=== PATIENT | female | born 1960 | race Caucasian/White ===

== ENCOUNTER 2017-07-12 13:51 | Inpatient (IN) | payer MEDICARE, OTHER ==
--- NOTE | 2017-07-12 14:24 | ED Physician Chart ---
ED Chief Complaint/HPI - Patient Information Date Seen:: 07/12/17 Time Seen:: 14:10 Chief Complaint:: Agitation History of Present Illness:: onset x 3 days of agitation and aggressive behavior; no report of trauma, SIs, AMS, H/As, S/T, neck pain, C/P, SOB, Abd. Pain, A/N/V/D/C, fever, chills, or urinary s/s Allergies:: Allergies Allergy/AdvReac Type Severity Reaction Status Date / Time lorazepam Allergy Verified 07/12/17 14:09 Historian:: Patient, EMS Review:: Nurse's Note Reviewed, Old Chart Reviewed, EMS run form Reviewed ED Review of Systems - Review of Systems General/Constitutional: No fever, No chills, No weight loss, No weakness, No diaphoresis, No edema, No loss of appetite Skin: No skin lesions, No rash, No bruising Head: No headache, No light-headedness Eyes: No loss of vision, No pain, No diplopia ENT: No earache, No nasal drainage, No sore throat, No tinnitus Neck: No neck pain, No swelling, No thyromegaly, No stiffness, No mass noted Cardio Vascular: No chest pain, No palpitations, No PND, No orthopnea, No edema Pulmonary: No SOB, No cough, No sputum, No wheezing GI: No nausea, No vomiting, No diarrhea, No pain, No melena, No hematochezia, No constipation, No hematemesis G/U: No dysuria, No frequency, No hematuria, No nacturia Radio Installer: No vaginal discharge, No abnormal vaginal bleed, No contraction Musculoskeletal: No bone or joint pain, No back pain, No muscle pain Endocrine: No polyuria, No polydipsia Psychiatric: Prior psych history, No depression, Anxiety, No suicidal ideation, No homicidal ideation, Auditory hallucination, No visual hallucination Hematopoietic: No bruising, No lymphadenopathy Allergic/Immuno: No urticaria, No angioedema Neurological: No syncope, No focal symptoms, No weakness, No paresthesia, No headache, No seizure, No dizziness, No confusion, No vertigo ED Past Medical History - Past Medical History Obtainable: Yes Past Medical History: HTN, CAD, Dyslipidemia, ESRD, Arthritis Family History: HTN Social History: Non Smoker, No Alcohol, No Drug Use, Single, Care Facility Surgical History: None Psychiatricy History: Schizophrenia, Bipolar Medication: Reviewed Family Medical History - Family Member Mother History Unknown: Yes ED Physical Exam - Physical Examination General/Constitutional: Awake, Well-developed, well-nourished, Alert, No distress, GCS 15, Non-toxic appearing, Ambulatory Head: Atraumatic Eyes: Lids, conjuctiva normal, PERRL, EOMI Skin: Nl inspection, No rash, No skin lesions, No ecchymosis, Well hydrated, No lymphadenopathy ENMT: External ears, nose nl, TM canals nl, Nasal exam nl, Lips, teeth, gums nl , Oropharynx nl, Tonsils nl Neck: Nontender, Full ROM w/o pain, No JVD, No nuchal rigidity, No bruit, No mass, No stridor Respiratory: Nl effort/Exclusion, Clear to Auscultation, No Wheeze/Rhonchi/Rales Cardio Vascular: No murmur, gallop, rubs, NL S1 S2, Carotid/Femoral/Distal pulses equal bilaterally Other Cardio Vascular comments:: Irregular Irregular Rhythm GI: No tenderness/rebounding/guarding, No organomegaly, No hernia, Normal BS's, Nondistended, No mass/bruits, No McBurney tenderness : No CVA tenderness Extremities: No tenderness or effusion, Full ROM, normal strength in all extremities, No edema, Normal digits & nails Neuro/Psych: Alert/oriented, DTR's symmetric, Normal sensory exam, Normal motor strength, Judgement/insight normal, Mood normal, Normal gait, No focal deficits Misc: Normal back, No paraspinal tenderness ED Labs/Radiology/EKG Results - Lab Results Comments:: unremarkable - EKG Interpretations EKG Time:: 14:32 Rate & Rhythm: 72; Atrial Flutter/Fibrillation Comments:: RBBB; non-specific st-t changes ED Septic Shock - . Is Septic Shock (SBP<90, OR Lactate>4 mmol\L) present?: No ED Reassessment (Disposition) - Reassessment Reassessment Condition:: Improved - Diagnosis Diagnosis:: Dx: Agitation; Medical Clearance; Psychosis; Bipolar Disorder - Aftercare/Follow up Instructions Aftercare/Follow-Up Instructions:: Counseled pt regarding lab results/diagnosis & need follow up, Counseled pt & family regarding lab results/diagnosis & need follow up - Patient Disposition Discharge/Transfer:: Acute Care w/in this hosp Admitted to:: [facility] Condition at Disposition:: Stable, Improved
[2017-07-12 14:55] LABS: % BASOPHILS 0.3 % (0.0-2.0); % EOSINOPHILS 3.5 % (0.0-5.0); % LYMPHOCYTES 24.1 % (20.0-50.0); % MONOCYTES 13.5 % (2.0-10.0); % NEUTROPHILS 58.6 % (40.0-80.0); EOSINOPHILE ABSOLUTE 0.2 Th/cmm (0.1-0.4); HEMATOCRIT 39.5 % (41.0-60); HEMOGLOBIN 13.3 gm/dL (12-16); LYMPHOCYTE ABSOLUTE 1.5 Th/cmm (1.5-3.0); MEAN CORPUSCULAR HEMOGLOBIN 31.4 pg (27.0-31.0); MEAN CORPUSCULAR HGB CONC 33.7 pg (28.0-36.0); MONOCYTE ABSOLUTE 0.9 Th/cmm (0.3-1.0); NEUTROPHILE ABSOLUTE 3.7 Th/cmm (1.8-8.0); PLATELET COUNT 209 Th/cmm (150-400); RED BLOOD COUNT 4.25 Mil/cmm (3.80-5.10); WHITE BLOOD COUNT 6.3 Th/cmm (4.8-10.8)
[2017-07-12 15:09] LABS: ACETAMINOPHEN < 10.0 ug/mL (10.0-30.0); ALB/GLOB RATIO 1.2 (1.0-1.8); ALBUMIN 3.2 gm/dL (3.7-5.3); ALKALINE PHOSPHATASE 57 U/L (34-104); ANION GAP 8.5 (7.0-16.0); BILIRUBIN,TOTAL 0.6 mg/dL (0.3-1.0); BUN - UREA NITROGEN 12 mg/dL (7-25); CARBON DIOXIDE 30.1 mEq/L (21.0-31.0); CHLORIDE 101 mEq/L (98-107); CHOLESTEROL 122 mg/dL (<200); CREATININE - SERUM 0.5 mg/dL (0.6-1.2); GFR AFRICAN-AMERICAN > 60.0 ml/min (>90); GFR NON AFRICAN-AMERICAN > 60.0 ml/min; GLUCOSE 118 mg/dL (70-105); HDL -HIGH DENSITY LIPOPROTEIN 52 mg/dL (23-92); POTASSIUM SERUM 3.6 mEq/L (3.5-5.1); SALICYLATES (ASPIRIN) < 25.0 mg/L (30.0-100.0); SGOT 22 U/L (13-39); SGPT/ALT 21 U/L (7-52); SODIUM SERUM 136 mEq/L (136-145); TOTAL PROTEIN,SERUM 5.8 gm/dL (6.0-8.3); TRIGLYCERIDES 82 mg/dL (<150)
[2017-07-12 15:10] LABS: HCG QUAL SERUM NEGATIVE (NEGATIVE)
[2017-07-12 15:59] LABS: URINE MICROSCOPIC INDICATED? YES; URINE SOURCE CLEAN C
[2017-07-12 16:09] LABS: URINE BILIRUBIN NEGATIVE (NEGATIVE); URINE BLOOD NEGATIVE (NEGATIVE); URINE GLUCOSE (UA) NEGATIVE (NEGATIVE); URINE KETONE NEGATIVE (NEGATIVE); URINE LEUKOCYTE ESTERASE NEGATIVE (NEGATIVE); URINE NITRATE NEGATIVE (NEGATIVE); URINE PROTEIN NEGATIVE (NEGATIVE)
[2017-07-12 16:12] LABS: A1C % 5.4 % (4.0-6.0)
[2017-07-12 16:20] LABS: URINE CLARITY SLIGHTLY HAZY (CLEAR); URINE COLOR YELLOW
[2017-07-12 16:35] LABS: URINE BACTERIA NONE SEEN /hpf (NONE SEEN); URINE EPITHELIAL CELLS MANY /lpf (FEW); URINE RBC 0-2 /hpf (0-5); URINE WBC 0-2 /hpf (0-5)
[2017-07-12 16:39] LABS: AMPHETAMINE URINE NEGATIVE (NEGATIVE); BARBITURATES URINE NEGATIVE (NEGATIVE); BENZODIAZEPINES QUAL URINE POSITIVE (NEGATIVE); CANNABINOID THC NEGATIVE (NEGATIVE); COCAINE METABOLITE QUAL URINE NEGATIVE (NEGATIVE); METHADONE URINE NEGATIVE (NEGATIVE); METHAMPHETAMINES QUAL URINE NEGATIVE (NEGATIVE); OPIATES (MORPHINE) QUAL. URINE NEGATIVE (NEGATIVE); PHENCYCLIDINE (PCP) URINE NEGATIVE (NEGATIVE); TRICYCLICS (TCA) QUAL. URINE NEGATIVE (NEGATIVE)
[2017-07-12 16:42] VITALS: BP 136/52
[2017-07-12] MEDS ORDERED: Magnesium Hydroxide (MOM) 30 mL UDC PO PRN (16:42)
[2017-07-12] MEDS ORDERED: Maalox 30 mL Cup PO PRN (16:42)
[2017-07-12] MEDS ORDERED: Lactulose 10 Gm/15 mL 30mL UDC PO PRN (17:00)
[2017-07-12] MEDS ORDERED: WHEY PROTEIN ISOLATE PO SCH (17:00)
[2017-07-13] MEDS: Multivitamin Tab PO SCH (09:56)
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
[2017-07-13] MEDS: NYSTATIN 100000 UNITS/GM POWD TP SCH (17:55)
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
[2017-07-14] MEDS: Multivitamin Tab PO SCH (08:41)
--- NOTE | 2017-07-14 09:26 | General Progress Note ---
Subjective - Review of Systems Subjective: Patient is seen and examined. No new events. Objective - Results Result Diagrams: 07/12/17 14:43 07/12/17 14:43 Recent Labs: Laboratory Last Values WBC 6.3 Th/cmm (4.8-10.8) 07/12/17 14:43 RBC 4.25 Mil/cmm (3.80-5.10) 07/12/17 14:43 Hgb 13.3 gm/dL (12-16) 07/12/17 14:43 Hct 39.5 % (41.0-60) L 07/12/17 14:43 MCV 93.0 fl (81-100) 07/12/17 14:43 MCH 31.4 pg (27.0-31.0) H 07/12/17 14:43 MCHC Differential 33.7 pg (28.0-36.0) 07/12/17 14:43 RDW 15.0 % (11.5-20.0) 07/12/17 14:43 Plt Count 209 Th/cmm (150-400) 07/12/17 14:43 MPV 8.0 fl 07/12/17 14:43 Neutrophils % 58.6 % (40.0-80.0) 07/12/17 14:43 Lymphocytes % 24.1 % (20.0-50.0) 07/12/17 14:43 Monocytes % 13.5 % (2.0-10.0) H 07/12/17 14:43 Eosinophils % 3.5 % (0.0-5.0) 07/12/17 14:43 Basophils % 0.3 % (0.0-2.0) 07/12/17 14:43 Sodium 136 mEq/L (136-145) 07/12/17 14:43 Potassium 3.6 mEq/L (3.5-5.1) 07/12/17 14:43 Chloride 101 mEq/L (98-107) 07/12/17 14:43 Carbon Dioxide 30.1 mEq/L (21.0-31.0) 07/12/17 14:43 Anion Gap 8.5 (7.0-16.0) 07/12/17 14:43 BUN 12 mg/dL (7-25) 07/12/17 14:43 Creatinine 0.5 mg/dL (0.6-1.2) L 07/12/17 14:43 Est GFR ( Amer) > 60.0 ml/min (>90) 07/12/17 14:43 Est GFR (Non-Af Amer) > 60.0 ml/min 07/12/17 14:43 BUN/Creatinine Ratio 24.0 07/12/17 14:43 Glucose 118 mg/dL (70-105) H 07/12/17 14:43 Hemoglobin A1c % 5.4 % (4.0-6.0) 07/12/17 14:43 Calcium 9.0 mg/dL (8.6-10.3) 07/12/17 14:43 Total Bilirubin 0.6 mg/dL (0.3-1.0) 07/12/17 14:43 AST 22 U/L (13-39) 07/12/17 14:43 ALT 21 U/L (7-52) 07/12/17 14:43 Alkaline Phosphatase 57 U/L (34-104) 07/12/17 14:43 Total Protein 5.8 gm/dL (6.0-8.3) L 07/12/17 14:43 Albumin 3.2 gm/dL (3.7-5.3) L 07/12/17 14:43 Globulin 2.6 gm/dL 07/12/17 14:43 Albumin/Globulin Ratio 1.2 (1.0-1.8) 07/12/17 14:43 Triglycerides 82 mg/dL (<150) 07/12/17 14:43 Cholesterol 122 mg/dL (<200) 07/12/17 14:43 LDL Cholesterol Direct 52 mg/dL (75-193) L 07/12/17 14:43 HDL Cholesterol 52 mg/dL (23-92) 07/12/17 14:43 TSH 1.25 uIU/ml (0.34-5.60) 07/12/17 14:43 Serum , Qual NEGATIVE (NEGATIVE) 07/12/17 14:43 Urine Source CLEAN C 07/12/17 15:40 Urine Color YELLOW 07/12/17 15:40 Urine Clarity SLIGHTLY HAZY (CLEAR) 07/12/17 15:40 Urine pH 6.0 (4.6 - 8.0) 07/12/17 15:40 Ur Specific [place] 1.025 (1.005-1.030) 07/12/17 15:40 Urine Protein NEGATIVE mg/dL (NEGATIVE) 07/12/17 15:40 Urine Glucose (UA) NEGATIVE mg/dL (NEGATIVE) 07/12/17 15:40 Urine Ketones NEGATIVE mg/dL (NEGATIVE) 07/12/17 15:40 Urine Blood NEGATIVE (NEGATIVE) 07/12/17 15:40 Urine Nitrate NEGATIVE (NEGATIVE) 07/12/17 15:40 Urine Bilirubin NEGATIVE (NEGATIVE) 07/12/17 15:40 Urine Urobilinogen 1.0 E.U./dL (0.2 - 1.0) 07/12/17 15:40 Ur Leukocyte Esterase NEGATIVE (NEGATIVE) 07/12/17 15:40 Urine RBC 0-2 /hpf (0-5) 07/12/17 15:40 Urine WBC 0-2 /hpf (0-5) 07/12/17 15:40 Ur Epithelial Cells MANY /lpf (FEW) 07/12/17 15:40 Urine Bacteria NONE SEEN /hpf (NONE SEEN) 07/12/17 15:40 Salicylates < 25.0 mg/L (30.0-100.0) L 07/12/17 14:43 Urine Opiates Screen NEGATIVE (NEGATIVE) 07/12/17 15:40 Urine Methadone Screen NEGATIVE (NEGATIVE) 07/12/17 15:40 Acetaminophen < 10.0 ug/mL (10.0-30.0) L 07/12/17 14:43 Ur Barbiturates Screen NEGATIVE (NEGATIVE) 07/12/17 15:40 Valproic Acid 15.1 ug/mL (50.0-100.0) L 07/13/17 09:20 Ur Tricyclics Screen NEGATIVE (NEGATIVE) 07/12/17 15:40 Ur Phencyclidine Scrn NEGATIVE (NEGATIVE) 07/12/17 15:40 Amphetamines Screen NEGATIVE (NEGATIVE) 07/12/17 15:40 U Methamphetamines Scrn NEGATIVE (NEGATIVE) 07/12/17 15:40 U Benzodiazepines Scrn POSITIVE (NEGATIVE) H 07/12/17 15:40 U Cocaine Metab Screen NEGATIVE (NEGATIVE) 07/12/17 15:40 U Cannabinoids Screen NEGATIVE (NEGATIVE) 07/12/17 15:40 Ethyl Alcohol < 10 mg/dL (0-10) 07/12/17 14:43 - Physical Exam Vitals and I&O: Vital Signs Temp 97.5 F 07/13/17 15:55 Pulse 79 07/14/17 08:41 Resp 20 07/13/17 20:00 BP 155/77 07/14/17 08:41 Pulse Ox 95 07/13/17 15:55 Intake & Output 07/13/17 07/14/17 07/14/17 18:59 06:59 18:59 Other: Stool Characteristics Formed Formed Brown Brown Active Medications: Current Medications Acetaminophen (Tylenol) 650 mg PO Q4HR PRN PRN Reason: Mild Pain / Temp above 100 Stop: 09/10/17 16:41 Last Admin: 07/13/17 09:56 Dose: 650 mg Al Hydrox/Mg Hydrox/Simethicone (Maalox) 30 ml PO Q4HR PRN PRN Reason: GI DISTRESS Stop: 09/10/17 16:41 Carvedilol (Coreg) 6.25 mg PO BID [facility] Stop: 09/10/17 16:59 Last Admin: 07/14/17 08:41 Dose: 6.25 mg Docusate Sodium (Colace) 100 mg PO DAILY [facility] Stop: 09/11/17 08:59 Last Admin: 07/14/17 08:40 Dose: 100 mg Furosemide (Lasix) 20 mg PO DAILY [facility] Stop: 09/11/17 08:59 Last Admin: 07/14/17 08:40 Dose: 20 mg Lactulose (Cephulac) 10 gm PO DAILY PRN PRN Reason: Constipation Stop: 09/10/17 16:59 Magnesium Hydroxide (Milk Of Magnesia) 30 ml PO HS PRN PRN Reason: Constipation Miscellaneous (Paliperidone Palmitate [Invega Sustenna]) 234 mg PO [id number] [facility] Stop: 09/10/17 16:44 Multivitamins/Vitamin C (Theragran) 1 tab PO DAILY [facility] Stop: 09/11/17 08:59 Last Admin: 07/14/17 08:41 Dose: 1 tab Nystatin (Nystop) 100,000 units TP BID [facility] Stop: 09/11/17 16:59 Last Admin: 07/13/17 17:55 Dose: 100,000 units Quetiapine Fumarate (Seroquel) 50 mg PO BID [facility] PRN Reason: Protocol Stop: 09/12/17 08:59 Last Admin: 07/14/17 08:41 Dose: 50 mg Quetiapine Fumarate (Seroquel) 100 mg PO HS [facility] PRN Reason: Protocol Stop: 09/12/17 20:59 Valproate Sodium (Depakene) 500 mg PO BID [facility] Stop: 09/12/17 06:42 Last Admin: 07/14/17 08:41 Dose: 500 mg Zolpidem Tartrate (Ambien) 5 mg PO HS PRN PRN Reason: Insomnia Stop: 09/10/17 16:41 Last Admin: 07/13/17 01:24 Dose: 5 mg General: Alert, No acute distress HEENT: Atraumatic, PERRLA, EOMI Neck: Supple, JVD Cardiovascular: Regular rate, Normal S1, Normal S2 Lungs: Clear to auscultation Abdomen: Bowel sounds, Soft Extremities: Other (No edema+) Skin: Other (Erythematous rash under the breast.) Psych/Mental Status: Other (labile.) Assessment/Plan - Assessment Assessment: Cutaneous candidiasis Hypertension. CAD Hyperlipedemia. Psych disorder DJD Fall risk. - Plan Plan: Nystatin powder Monitor vitals and lab Monitor behavior Fall precautions. general nursing care Psych meds Psych follow up. Symptoms management. Continue current care.
--- NOTE | 2017-07-14 21:25 | Progress Notes ---
DATE: SUBJECTIVE: Chart reviewed and the patient interviewed. Also discussed the patient's condition with the staff and reviewed records and labs. The patient continued to be extremely agitated and in angry and irritable mood. The patient has been yelling and screaming, and verbally abusive to staff. The patient also has been taking off her clothes and yelling at staff to come and help her out. She also did not sleep last night, almost all night. Also, during interview, the patient kept yelling and screaming and asking for "help." She also has been having severe mood swings and she was not able to carry on coherent conversation. ASSESSMENT: The patient is still severely psychotic and agitated. TREATMENT PLAN: Continue to monitor her behavior and her condition closely. Also, we will start the patient on Seroquel 50 mg twice a day and 100 mg at bedtime. Also, we will increase Depakote to 500 mg twice a day and will continue to follow up closely. [facility]# [id number]
[2017-07-15] MEDS: NYSTATIN 100000 UNITS/GM POWD TP SCH ×2 (08:35→17:19)
[2017-07-15] MEDS: Multivitamin Tab PO SCH (08:39)
--- NOTE | 2017-07-15 09:20 | General Progress Note ---
Subjective - Review of Systems Subjective: Patient is seen and examined. No new events. Discussed with staff Re; their concerns. Objective - Results Result Diagrams: 07/12/17 14:43 07/12/17 14:43 Recent Labs: Laboratory Last Values WBC 6.3 Th/cmm (4.8-10.8) 07/12/17 14:43 RBC 4.25 Mil/cmm (3.80-5.10) 07/12/17 14:43 Hgb 13.3 gm/dL (12-16) 07/12/17 14:43 Hct 39.5 % (41.0-60) L 07/12/17 14:43 MCV 93.0 fl (81-100) 07/12/17 14:43 MCH 31.4 pg (27.0-31.0) H 07/12/17 14:43 MCHC Differential 33.7 pg (28.0-36.0) 07/12/17 14:43 RDW 15.0 % (11.5-20.0) 07/12/17 14:43 Plt Count 209 Th/cmm (150-400) 07/12/17 14:43 MPV 8.0 fl 07/12/17 14:43 Neutrophils % 58.6 % (40.0-80.0) 07/12/17 14:43 Lymphocytes % 24.1 % (20.0-50.0) 07/12/17 14:43 Monocytes % 13.5 % (2.0-10.0) H 07/12/17 14:43 Eosinophils % 3.5 % (0.0-5.0) 07/12/17 14:43 Basophils % 0.3 % (0.0-2.0) 07/12/17 14:43 Sodium 136 mEq/L (136-145) 07/12/17 14:43 Potassium 3.6 mEq/L (3.5-5.1) 07/12/17 14:43 Chloride 101 mEq/L (98-107) 07/12/17 14:43 Carbon Dioxide 30.1 mEq/L (21.0-31.0) 07/12/17 14:43 Anion Gap 8.5 (7.0-16.0) 07/12/17 14:43 BUN 12 mg/dL (7-25) 07/12/17 14:43 Creatinine 0.5 mg/dL (0.6-1.2) L 07/12/17 14:43 Est GFR ( Amer) > 60.0 ml/min (>90) 07/12/17 14:43 Est GFR (Non-Af Amer) > 60.0 ml/min 07/12/17 14:43 BUN/Creatinine Ratio 24.0 07/12/17 14:43 Glucose 118 mg/dL (70-105) H 07/12/17 14:43 Hemoglobin A1c % 5.4 % (4.0-6.0) 07/12/17 14:43 Calcium 9.0 mg/dL (8.6-10.3) 07/12/17 14:43 Total Bilirubin 0.6 mg/dL (0.3-1.0) 07/12/17 14:43 AST 22 U/L (13-39) 07/12/17 14:43 ALT 21 U/L (7-52) 07/12/17 14:43 Alkaline Phosphatase 57 U/L (34-104) 07/12/17 14:43 Total Protein 5.8 gm/dL (6.0-8.3) L 07/12/17 14:43 Albumin 3.2 gm/dL (3.7-5.3) L 07/12/17 14:43 Globulin 2.6 gm/dL 07/12/17 14:43 Albumin/Globulin Ratio 1.2 (1.0-1.8) 07/12/17 14:43 Triglycerides 82 mg/dL (<150) 07/12/17 14:43 Cholesterol 122 mg/dL (<200) 07/12/17 14:43 LDL Cholesterol Direct 52 mg/dL (75-193) L 07/12/17 14:43 HDL Cholesterol 52 mg/dL (23-92) 07/12/17 14:43 TSH 1.25 uIU/ml (0.34-5.60) 07/12/17 14:43 Serum , Qual NEGATIVE (NEGATIVE) 07/12/17 14:43 Urine Source CLEAN C 07/12/17 15:40 Urine Color YELLOW 07/12/17 15:40 Urine Clarity SLIGHTLY HAZY (CLEAR) 07/12/17 15:40 Urine pH 6.0 (4.6 - 8.0) 07/12/17 15:40 Ur Specific [place] 1.025 (1.005-1.030) 07/12/17 15:40 Urine Protein NEGATIVE mg/dL (NEGATIVE) 07/12/17 15:40 Urine Glucose (UA) NEGATIVE mg/dL (NEGATIVE) 07/12/17 15:40 Urine Ketones NEGATIVE mg/dL (NEGATIVE) 07/12/17 15:40 Urine Blood NEGATIVE (NEGATIVE) 07/12/17 15:40 Urine Nitrate NEGATIVE (NEGATIVE) 07/12/17 15:40 Urine Bilirubin NEGATIVE (NEGATIVE) 07/12/17 15:40 Urine Urobilinogen 1.0 E.U./dL (0.2 - 1.0) 07/12/17 15:40 Ur Leukocyte Esterase NEGATIVE (NEGATIVE) 07/12/17 15:40 Urine RBC 0-2 /hpf (0-5) 07/12/17 15:40 Urine WBC 0-2 /hpf (0-5) 07/12/17 15:40 Ur Epithelial Cells MANY /lpf (FEW) 07/12/17 15:40 Urine Bacteria NONE SEEN /hpf (NONE SEEN) 07/12/17 15:40 Salicylates < 25.0 mg/L (30.0-100.0) L 07/12/17 14:43 Urine Opiates Screen NEGATIVE (NEGATIVE) 07/12/17 15:40 Urine Methadone Screen NEGATIVE (NEGATIVE) 07/12/17 15:40 Acetaminophen < 10.0 ug/mL (10.0-30.0) L 07/12/17 14:43 Ur Barbiturates Screen NEGATIVE (NEGATIVE) 07/12/17 15:40 Valproic Acid 15.1 ug/mL (50.0-100.0) L 07/13/17 09:20 Ur Tricyclics Screen NEGATIVE (NEGATIVE) 07/12/17 15:40 Ur Phencyclidine Scrn NEGATIVE (NEGATIVE) 07/12/17 15:40 Amphetamines Screen NEGATIVE (NEGATIVE) 07/12/17 15:40 U Methamphetamines Scrn NEGATIVE (NEGATIVE) 07/12/17 15:40 U Benzodiazepines Scrn POSITIVE (NEGATIVE) H 07/12/17 15:40 U Cocaine Metab Screen NEGATIVE (NEGATIVE) 07/12/17 15:40 U Cannabinoids Screen NEGATIVE (NEGATIVE) 07/12/17 15:40 Ethyl Alcohol < 10 mg/dL (0-10) 07/12/17 14:43 RPR NONREACTIVE (NONREACTIVE) 07/12/17 14:43 - Physical Exam Vitals and I&O: Vital Signs Temp 98.6 F 07/14/17 20:00 Pulse 80 07/15/17 08:37 Resp 20 07/14/17 20:00 BP 142/79 07/15/17 08:38 Pulse Ox 98 07/14/17 20:00 Intake & Output 07/14/17 07/15/17 07/15/17 18:59 06:59 18:59 Intake Total 360 Balance 360 Intake: Oral 360 Other: # Voids 1 Active Medications: Current Medications Acetaminophen (Tylenol) 650 mg PO Q4HR PRN PRN Reason: Mild Pain / Temp above 100 Stop: 09/10/17 16:41 Last Admin: 07/13/17 09:56 Dose: 650 mg Al Hydrox/Mg Hydrox/Simethicone (Maalox) 30 ml PO Q4HR PRN PRN Reason: GI DISTRESS Stop: 09/10/17 16:41 Carvedilol (Coreg) 6.25 mg PO BID [facility] Stop: 09/10/17 16:59 Last Admin: 07/15/17 08:37 Dose: 6.25 mg Docusate Sodium (Colace) 100 mg PO DAILY [facility] Stop: 09/11/17 08:59 Last Admin: 07/15/17 08:37 Dose: 100 mg Furosemide (Lasix) 20 mg PO DAILY [facility] Stop: 09/11/17 08:59 Last Admin: 07/15/17 08:38 Dose: 20 mg Hydroxyzine Pamoate (Vistaril) 25 mg PO Q4HR PRN; Protocol PRN Reason: Agitation Stop: 09/13/17 07:45 Lactulose (Cephulac) 10 gm PO DAILY PRN PRN Reason: Constipation Stop: 09/10/17 16:59 Magnesium Hydroxide (Milk Of Magnesia) 30 ml PO HS PRN PRN Reason: Constipation Miscellaneous (Paliperidone Palmitate [Invega Sustenna]) 234 mg PO [id number] [facility] Stop: 09/10/17 16:44 Multivitamins/Vitamin C (Theragran) 1 tab PO DAILY [facility] Stop: 09/11/17 08:59 Last Admin: 07/15/17 08:39 Dose: 1 tab Nystatin (Nystop) 100,000 units TP BID [facility] Stop: 09/11/17 16:59 Last Admin: 07/15/17 08:35 Dose: Not Given Quetiapine Fumarate (Seroquel) 50 mg PO BID [facility] PRN Reason: Protocol Stop: 09/12/17 08:59 Last Admin: 07/15/17 08:37 Dose: 50 mg Quetiapine Fumarate (Seroquel) 200 mg PO HS [facility] PRN Reason: Protocol Stop: 09/13/17 06:43 Valproate Sodium (Depakene) 500 mg PO BID [facility] Stop: 09/12/17 06:42 Last Admin: 07/15/17 08:35 Dose: 500 mg Zolpidem Tartrate (Ambien) 5 mg PO HS PRN PRN Reason: Insomnia Stop: 09/10/17 16:41 Last Admin: 07/14/17 23:05 Dose: 5 mg General: Alert, No acute distress HEENT: Atraumatic, PERRLA, EOMI Neck: Supple, JVD Cardiovascular: Regular rate, Normal S1, Normal S2 Lungs: Clear to auscultation Abdomen: Bowel sounds, Soft Extremities: Other (No edema+) Skin: Other (Erythematous rash under the breast.) Psych/Mental Status: Other (labile.) Assessment/Plan - Assessment Assessment: Cutaneous candidiasis. Hypertension. CAD. Hyperlipedemia. Psych disorder. DJD. Fall risk. - Plan Plan: Nystatin powder under the breast area tid. Monitor vitals. Monitor behavior. Fall precautions. general nursing care Psych meds as per psych. Psych follow up. Symptoms management. Continue current care. Discussed with staff.
--- NOTE | 2017-07-15 22:07 | Progress Notes ---
DATE: SUBJECTIVE: Chart reviewed. The patient interviewed. Also discussed the patient's condition with the staff and reviewed records and labs. The patient continued to be extremely agitated and is extremely irritable. The patient continued to yell and scream and is still demanding. Also, the patient after staff changing her diapers today, she took off her diaper and asking staff to change her again, and in angry and irritable mood. The patient also is still suspicious and still needs lots of redirections with difficulty following directions. ASSESSMENT: The patient is still agitated and is still severely psychotic. TREATMENT PLAN: Continue to monitor her behavior and her condition closely. Also, we will increase Seroquel to 50 mg twice a day and 200 mg at bedtime and we will continue to follow closely because of her irritability and agitation. [facility]# [id number]
[2017-07-16] MEDS: NYSTATIN 100000 UNITS/GM POWD TP SCH ×2 (08:04→16:10)
[2017-07-16] MEDS: Multivitamin Tab PO SCH (08:24)
--- NOTE | 2017-07-16 21:37 | Progress Notes ---
DATE: 07/16/2017 Case was discussed with staff of the patient, reviewed records. Covering for Dr. Darden. This is a 56-year-old female who was admitted on 07/12/2017. The patient with a history of bipolar disorder, very agitated, restless for a few days prior to admission, has not been able to follow staff direction. She has no idea why she was hospitalized with a history of bipolar disorder and multiple psychiatric hospitalizations with history of hypertension with cardiomegaly. The patient continues to be very agitated. Apparently, she has been coming out of her room yelling and screaming for no apparent reason, very agitated, irritable, demanding, acting inappropriately, bizarre, unable to follow directions. She has been compliant with the medication with no side effects, no sedation, no nausea, and no extrapyramidal symptoms. Her current medication is Coreg 6.25 mg twice a day, Lasix 20 mg daily, multivitamin 1 tablet daily, nystatin 100,000 unit packet every 4 weeks, Seroquel 50 mg twice a day and 200 mg at bedtime, Depakote 500 mg twice a day, Ambien 5 mg at bedtime as needed for lack of sleep and medication was adjusted yesterday by Dr. Darden and increased Seroquel 200 mg at bedtime. She was too early to make further adjustments. We will continue outpatient group therapy, milieu therapy, and adjust the medications as needed. JOB# [id number]
[2017-07-17] MEDS: NYSTATIN 100000 UNITS/GM POWD TP SCH ×3 (08:38→16:37)
[2017-07-17] MEDS: Multivitamin Tab PO SCH (08:40)
[2017-07-17] MEDS ORDERED: Haloperidol Lactate 5 mg/mL 1mL Vial ONE (14:50)
[2017-07-17] MEDS ORDERED: Haloperidol Lactate 5 mg/mL 1mL Vial IM ONE (15:02)
--- NOTE | 2017-07-17 18:27 | Progress Notes ---
DATE: 07/17/2017 IDENTIFICATION: A 56-year-old female. The patient was seen and examined. PHYSICAL EXAMINATION: GENERAL: The patient is lying in the bed. No new event. VITAL SIGNS: Temperature 97, pulse is 84, respiratory 18, blood pressure 140/84. HEENT: No facial asymmetry. NECK: Supple, no JVD. HEART: Regular. CHEST AND LUNGS: Equal in expansion. No wheezing, no crackles. ABDOMEN: Soft. No guarding, rigidity. Bowel sounds are present. No palpable mass. EXTREMITIES: No edema. NEUROLOGIC: Alert, awake, follows commands. CLINICAL IMPRESSION: 1. Hypertension. 2. Coronary artery disease. 3. Hyperlipidemia. 4. Psych disorder. 5. Degenerative joint disease. PLAN: 1. Antihypertensive medicine. 2. Monitor blood pressure. 3. Aspirin. 4. Statin. 5. Psych medication. 6. Psych followup. 7. General nursing care. 8. Chronic disease management. 9. Care plan reviewed and discussed with staff. JOB# [id number]
--- NOTE | 2017-07-17 21:05 | Progress Notes ---
DATE: 07/17/2017 Case was discussed with staff of the patient, reviewed records. The patient continues to have poor insight. Continues to be hard to redirect. Continues to be unable to give much information. Continues to be easily agitated. Continues to have episodes of yelling and screaming, unpredictable and impulsive. She still far, compliant with the medication with no side effects, no sedation, no nausea, no extrapyramidal symptoms. We will continue to work with the patient group therapy, milieu therapy, and adjust the medications as needed. JOB# [id number]
[2017-07-18] MEDS: NYSTATIN 100000 UNITS/GM POWD TP SCH ×2 (08:40→16:32)
[2017-07-18] MEDS: Multivitamin Tab PO SCH (08:41)
--- NOTE | 2017-07-19 06:53 | Progress Notes ---
DATE: 07/18/2017 Chart reviewed and the patient interviewed. Also, discussed the patient's condition with the staff and reviewed records and labs. The patient was extremely agitated and irritable yesterday and she was argumentative and demanding with the staff and she was threatening staff that "I will put you in shelter." The patient had to be given emergency dose of Haldol, Ativan and Benadryl in order to calm her down. The patient is still extremely angry and in irritable mood. She is demanding and she is using foul language, thoughts that , banging in doors and she has been very paranoid and she believes that her ex-'s spirit is in her room to harm her. The patient also has been thinking that there is a lady looking at her from the window in her room. The patient also continued to threaten the staff and continued to be extremely irritable and agitated. Also, during interview her thought processes are circumstantial and tangential with flight of ideas. ASSESSMENT: The patient is still psychotic and still can be dangerous to others. TREATMENT PLAN: We will continue monitoring her behavior and her condition closely. Also, we will increase Seroquel to 100 mg twice a day and 250 mg at bedtime and will continue to follow up. JOB# [id number]
[2017-07-19] MEDS: Multivitamin Tab PO SCH (08:37)
[2017-07-19] MEDS: NYSTATIN 100000 UNITS/GM POWD TP SCH ×2 (08:38→17:09)
--- NOTE | 2017-07-19 17:48 | Progress Notes ---
DATE: IDENTIFICATION: A 56-year-old female. SUBJECTIVE: The patient seen and examined. The patient is lying in the bed. The patient is very agitated. The patient denies any chest pain, short of breath, palpitation, and dizziness. PHYSICAL EXAMINATION: VITAL SIGNS: Temperature 96, pulse is 95, respiratory rate is 18, blood pressure 160/90. HEENT: No facial asymmetry. NECK: Supple, no JVD. HEART: Regular. CHEST AND LUNGS: Equal in expansion, no wheezing, no crackles. ABDOMEN: Soft. No guarding, rigidity. Bowel sounds are present. No palpable mass. EXTREMITIES: No edema. CLINICAL IMPRESSION: 1. Hypertension. 2. Hyperlipidemia. 3. Coronary artery disease. 4. Degenerative joint disease. 5. Psychotic disorder. 6. Obesity. 7. High risk for fall. 8. Cutaneous candidiasis, clinically improving. PLAN: 1. Continue current medications for candidiasis. 2. We will continue to monitor blood pressure and fall precautions, antihypertensive medicines along with statins. 3. General nursing care, fall precautions, nutritional support along with a psychiatric management by psychiatrist. Care plan reviewed and discussed. JOB# [id number]
--- NOTE | 2017-07-19 22:59 | Progress Notes ---
DATE: SUBJECTIVE: Chart reviewed and the patient interviewed. Also discussed the patient's condition with the staff and reviewed records and labs. The patient is still in irritable and angry mood and be easily agitated. The patient also is having episodes of yelling and screaming and the patient is loud. She also is verbally abusive to staff, especially when her demands are not met. The patient also is still having severe mood swings and severe anxiety. Otherwise, the patient is cooperative and compliant with taking her medications. The patient also is still delusional and continues to talk about that her ex-'s friends are in her room in order to harm her. ASSESSMENT: The patient is still psychotic and confused. TREATMENT PLAN: Continue monitoring her behavior closely. Also, I increased the Seroquel yesterday to 100 mg twice a day and 250 mg at bedtime. We will continue same dose and we will continue to work on her irritability and continue to follow up closely. Also, working with housing case manager in regards to discharge plans and in regards to placement issue for the patient. So far no place available for the patient. JOB# [id number]
[2017-07-20] MEDS: Multivitamin Tab PO SCH (08:19)
[2017-07-20] MEDS: NYSTATIN 100000 UNITS/GM POWD TP SCH ×2 (08:25→17:43)
--- NOTE | 2017-07-21 01:25 | Progress Notes ---
DATE: 07/20/2017 SUBJECTIVE: Chart reviewed and the patient interviewed. Also, discussed the patient's condition with the staff and reviewed records and labs. The patient continued to be extremely irritable and extremely agitated. The patient also is still hyperverbal and she is still restless and continued to be intrusive to staff and to others. The patient also still needs lots of redirections and the patient is having difficulty following staff directions. Otherwise, the patient is compliant with taking her medications with no side effect of medications. The patient is demanding and she is still verbally abusive to staff. ASSESSMENT: The patient is still agitated and is still psychotic. TREATMENT PLAN: Continue to monitor her behavior and her condition closely. Also, we will increase Seroquel to 100 mg twice a day and 300 mg at bedtime and will continue to follow up closely. JOB# [id number]
[2017-07-21] MEDS: NYSTATIN 100000 UNITS/GM POWD TP SCH ×2 (09:24→17:16)
[2017-07-21] MEDS: Multivitamin Tab PO SCH (09:26)
--- NOTE | 2017-07-21 11:15 | Progress Notes ---
DATE: 07/21/2017 THE PATIENT'S ID: A 56-year-old female. Subjective: The patient seen and examined. OBJECTIVE: GENERAL: The patient is lying in the bed. No new event. VITAL SIGNS: Temperature 97.6, pulse 92, respiratory rate 20, blood pressure 141/76. Medication admission record is reviewed. HEENT: No facial asymmetry. NECK: Supple, no JVD. HEART: Regular. CHEST AND LUNGS: Equal in expansion. LUNGS: No wheezing, no crackles. ABDOMEN: Soft. No guarding or rigidity. Bowel sounds are present. No palpable mass. EXTREMITIES: No edema. CLINICAL IMPRESSION: 1. Coronary artery disease. 2. Hypertension. 3. Degenerative joint disease. 4. Obesity. 5. Psychotic disorder. PLAN: 1. Statin. 2. Monitor blood pressure. 3. Antihypertensive medicine. 4. Aspirin. 5. Psych followup. 6. Psych medication. 7. General nursing care. 8. We will follow this patient's during the stay in the hospital. JOB# [id number]
[2017-07-22] MEDS: NYSTATIN 100000 UNITS/GM POWD TP SCH ×2 (09:13→16:04)
[2017-07-22] MEDS: Multivitamin Tab PO SCH (09:13)
[2017-07-23] MEDS: Multivitamin Tab PO SCH (08:31)
[2017-07-23] MEDS: NYSTATIN 100000 UNITS/GM POWD TP SCH ×2 (08:35→16:31)
--- NOTE | 2017-07-23 11:29 | Progress Notes ---
DATE: 07/21/2017 SUBJECTIVE: Chart reviewed and the patient interviewed. Also discussed the patient's condition with the staff and reviewed records and labs. The patient is still easily agitated. The patient also is still hypertalkative and she is still resisting care. The patient also is still focused on her smoking. When her demands not met, the patient gets agitated and aggressive. Otherwise, the patient is compliant with taking her medications with no side effect of medications. ASSESSMENT: The patient is still agitated and in irritable mood. TREATMENT PLAN: Continue monitoring her behavior and her condition closely. Also, continue to work on her poor impulse control and her demanding and impulsivity. Also, adjusting psychotropic medications. JOB# [id number]
--- NOTE | 2017-07-23 11:37 | Progress Notes ---
DATE: SUBJECTIVE: Chart reviewed and the patient interviewed. Also discussed the patient's condition with the staff and reviewed records and labs. The patient is still in irritable and angry mood. The patient also is still easily agitated and the patient also is demanding. The patient also is argumentative and she is disturbing others. Otherwise, the patient has continued to comply with taking her medications with no side effects of medications. ASSESSMENT: The patient is still agitated and psychotic. TREATMENT PLAN: Continue monitoring her behavior and continue to follow up. Also continue adjusting psychotropic medications. Also, working on discharge plans. JOB# [id number]
--- NOTE | 2017-07-23 20:51 | Progress Notes ---
DATE: 07/23/2017 SUBJECTIVE: The patient was seen and evaluated. The patient's chart reviewed. Dr. Chavez covering for Dr. Darden. IDENTIFYING DATA: A 56-year-old female was admitted here with a history of bipolar, extremely agitated and restless and not sleeping. Overnight nursing staff reporting that the patient continues to be easily suspicious. Today on [id number]-[id number] evaluation, the patient stated that the phone reports everything is fine, but observed to be easily suspicious and reports poor sleep. MENTAL STATUS EXAMINATION: Easily suspicious, irritable, easily agitated, needing a lot of redirection. ASSESSMENT AND PLAN: The patient is a 56-year-old female who continues to be suspicious, paranoid, and irritable, whose Seroquel was recently increased to 100 mg p.o. b.i.d. and 300 mg at nighttime to target the patient's severe suspicious psychotic behavior. We will continue monitoring and evaluating and she has tolerating without any complications or side effects of medications. [facility]# [id number]
[2017-07-24] MEDS: Multivitamin Tab PO SCH (08:47)
[2017-07-24] MEDS: NYSTATIN 100000 UNITS/GM POWD TP SCH ×2 (09:06→17:04)
--- NOTE | 2017-07-24 20:16 | Progress Notes ---
DATE: 07/23/2017 SUBJECTIVE: The patient was seen with the nursing unit clerk. Covering for Dr. Darden. Overnight the patient, nursing staff reported the patient continues to call 911 because she was very paranoid. Today on pgqa-[id number] evaluation, the patient reports that her mother is trying to kill her ____ feels very distraught and paranoid. MENTAL STATUS EXAMINATION: Paranoid, is irritable, agitated, trying to call 911. ASSESSMENT AND PLAN: This is a 56-year-old female with a history of paranoid schizophrenia. Seroquel was recently increased to 100 mg p.o. b.i.d. and 300 mg at nighttime, a total of 500 mg. We will continue with the current medication regimen that was recently increased, reaching steady state. We will provide therapeutic alliance. In the meantime, may consider increasing in the next 24 hours. JOB# [id number]
[2017-07-25] MEDS: Multivitamin Tab PO SCH (08:31)
[2017-07-25] MEDS: NYSTATIN 100000 UNITS/GM POWD TP SCH ×2 (08:32→17:21)
--- NOTE | 2017-07-25 19:58 | Progress Notes ---
DATE: 07/25/2017 SUBJECTIVE: The patient was seen and evaluated. The patient's chart reviewed. This is Dr. Chavez covering for Dr. Darden. Today on [id number]-[id number] evaluation, the patient is extremely irritable, agitated, reported that she needs her medications immediately. She feels like her family is trying to kill her . MENTAL STATUS EXAMINATION: Paranoid delusions. ASSESSMENT AND PLAN: The patient is a 56-year-old female, who presents very psychotic, disorganized. We will continue with the current medication regimen. She continues to be in steady state. She continues to believe her family , but her own mother is very delusional. We will continue increasing Seroquel to 125 b.i.d. to target the patient's active psychotic symptoms. [facility]# [id number]
[2017-07-26] MEDS: Multivitamin Tab PO SCH (09:30)
[2017-07-26] MEDS: NYSTATIN 100000 UNITS/GM POWD TP SCH ×2 (09:31→16:38)
--- NOTE | 2017-07-27 00:03 | Progress Notes ---
DATE: 07/26/2017 SUBJECTIVE: The patient is currently in the hospital, history of bipolar. History of agitation and restless for the past few days, not following any directions. The patient is seen by Dr. Chavez over the past few days. The patient states she is here for "medication changes." Describes her mood is" hungry." Noted to be irritable, highly impulsive, unpredictable, still with mood swings, mood lability. The patient is mostly withdrawn and isolative. The patient complains of poor sleep. ASSESSMENT: The patient remains suspicious, paranoid, withdrawn, impulsive, unpredictable, still at times with agitation. PLAN: We will continue to monitor. We will continue to adjust and titrate medications. Given recent dose changes we will continue with current dose. Recommend checking a Depakote level and adjusting the medications as tolerated. Medications were reviewed. The patient is not safe for a lower level of care. [facility]# [id number]
[2017-07-27] MEDS: Multivitamin Tab PO SCH (08:51)
[2017-07-27] MEDS: NYSTATIN 100000 UNITS/GM POWD TP SCH (08:59)
[2017-07-28] MEDS: Multivitamin Tab PO SCH (08:38)
--- NOTE | 2017-07-28 10:03 | Progress Notes ---
DATE: IDENTIFICATION: A 56-year-old female. SUBJECTIVE: The patient is seen and examined. The patient lying in the bed, no new event. The patient continued to remain unpredictable. The patient discussed with nursing staff, no new event reported. PHYSICAL EXAMINATION: VITAL SIGNS: See nurse's note. HEENT: No facial asymmetry. NECK: Supple, no JVD. HEART: Regular. CHEST: Lung equal in expansion. No wheezing, no crackles. ABDOMEN: Soft, no guarding or rigidity. Bowel sounds present. No palpable mass. EXTREMITIES: No edema. NEUROLOGIC: Alert, awake, follows commands. Available MAR reviewed. CLINICAL IMPRESSION: 1. Coronary artery disease. 2. Hypertension. 3. Degenerative joint disease. 4. Obesity. 5. Psychiatric disorder. PLAN: 1. Aspirin. 2. Beta makayla. 3. Statin. 4. General nursing care. 5. Psych medication. 6. Psych followup. 7. Fall precautions. 8. Nutritional support. 9. Care plan reviewed and discussed. JOB# [id number]
--- NOTE | 2017-07-28 13:11 | Progress Notes ---
DATE: SUBJECTIVE: Chart reviewed and the patient interviewed. Also discussed the patient's condition with the staff and reviewed records and labs. The patient is demanding and she is still easily agitated and in irritable mood. The patient also is still aggressive with the staff and she is still going around the unit with sometimes wheelchair and sometimes walking. She also is still impulsive and intrusive and has unpredictable behavior. ASSESSMENT: The patient is still psychotic and agitated and can be dangerous to others. TREATMENT PLAN: Continue adjusting psychotropic medications and continue to monitor her behavior closely. [facility]# [id number]
[2017-07-29] MEDS: Multivitamin Tab PO SCH (08:55)
--- NOTE | 2017-07-29 14:50 | Progress Notes ---
DATE: 07/28/2017 SUBJECTIVE: Chart reviewed and the patient interviewed. Also discussed the patient's condition with the staff and reviewed records and labs. The patient continued to be confused and continued to be manicky and at times singing and other times yelling and screaming. Unpredictable behavior continued. The patient also has been focused on food and smoking. The patient also still has difficulty following directions and gets agitated when staff tries to redirect her. Otherwise, the patient continued to comply with taking her medications with no side effects of medications. ASSESSMENT: The patient is still manicky and psychotic. TREATMENT PLAN: We will continue monitoring her behavior and her condition closely. Also, we will increase Seroquel to 150 mg twice a day and 300 mg at bedtime. Depakote blood level was done on 07/13/2017, came back to be and will repeat Depakote blood level today. JOB# [id number]
[2017-07-30] MEDS: Multivitamin Tab PO SCH (08:52)
--- NOTE | 2017-07-30 19:04 | Progress Notes ---
DATE: 07/30/2017 SUBJECTIVE: The patient is currently in the hospital, history of bipolar, very agitated, restless, apparently aggressive at some points, trying to hit other people. Dr. Darden seeing the patient over the past few days. He remained confused, manic at times, yelling, screaming, remains impulsive and unpredictable. The patient slept for about 4 hours, noted to be intrusive on exam, grandiose on exam, easily agitated. ASSESSMENT: The patient remains symptomatic, grandiose, talking about nonsensical topics. Medications were noted. PLAN: We will continue to monitor and follow up. The patient is not safe for a lower level of care. JOB# [id number]
--- NOTE | 2017-07-31 09:39 | Progress Notes ---
DATE: 07/31/2017 SUBJECTIVE: The patient is currently in the hospital, history of bipolar. The patient mumbling to self, not making any sense, and I had difficulty understanding her. Some grandiosity noted. Poor sleep. speech assistant awakenings. Staff noting she is mumbling to self, restless, yelling throughout the night, not stable, poorly oriented, responding heavily to internal stimuli, still delusional. ASSESSMENT: The patient remains psychotic, responding heavily to internal stimuli, nonsensical, and disorganized. PLAN: We will continue to monitor. The patient may benefit from increasing dosages of antipsychotic medications. I will be increasing her dose of Seroquel today. Given her ongoing symptoms, she is not safe for a lower level of care. JOB# [id number]
[2017-07-31] MEDS: Multivitamin Tab PO SCH (10:05)
--- NOTE | 2017-07-31 17:57 | Progress Notes ---
DATE: IDENTIFICATION: A 56-year-old female. SUBJECTIVE: The patient seen and examined. The patient is lying in the bed. Denies any chest pain, shortness of breath, palpitation. Discussed with nursing staff about their concerns and treatment plan. PHYSICAL EXAMINATION: VITAL SIGNS: See nurse's note. HEENT: Poor dentition. NECK: Supple, no JVD, no lymphadenopathy. HEART: Regular, no murmur. CHEST: Lung equal in expansion. LUNGS: No wheezing, no crackles. ABDOMEN: Soft. No guarding. No rigidity. Bowel sounds are present. EXTREMITIES: No edema. NEUROLOGIC: Nonfocal. CLINICAL IMPRESSION: 1. Coronary artery disease. 2. Hypertension. 3. Degenerative joint disease. 4. Psychotic disorder. 5. Obesity. PLAN: Medical management for coronary artery disease, hypertension, degenerative joint disease and obesity. Provide general nursing care. Psych medication, psych followup along with nutritional support. Care plan reviewed and discussed with staff. JOB# [id number]
[2017-08-01] MEDS: Multivitamin Tab PO SCH (09:40)
--- NOTE | 2017-08-01 23:18 | Progress Notes ---
DATE: 08/01/2017 SUBJECTIVE: The patient seen and examined. The patient is lying in the bed. No new event. No new concern from the staff. PHYSICAL EXAMINATION: VITAL SIGNS: Temperature 97.6, pulse is 64, respirations 18, and blood pressure 144/84. HEENT: No facial asymmetry. Poor dentition noted. NECK: Supple, no JVD. HEART: Regular. CHEST AND LUNGS: Equal in expansion, no wheezing, no crackles. ABDOMEN: Soft. No guarding or rigidity. Bowel sounds present. No palpable mass. EXTREMITIES: No edema. CLINICAL IMPRESSION: 1. Coronary artery disease. 2. Hypertension. 3. Degenerative joint disease. 4. Psychotic disorder. 5. Obesity. PLAN: 1. Psychotic evaluation and management deferred to psychiatrist. 2. Symptoms management. 3. General nursing care. 4. Antihypertensive medicine. 5. Follow labs. 6. We will continue to follow this patient during the stay in the hospital. JOB# [id number]
[2017-08-02] MEDS: Multivitamin Tab PO SCH (08:38)
[2017-08-02 11:09] LABS: BUN - UREA NITROGEN 16 mg/dL (7-25); CALCIUM SERUM 9.3 mg/dL (8.6-10.3); CARBON DIOXIDE 29.9 mEq/L (21.0-31.0); CHLORIDE 100 mEq/L (98-107); CREATININE - SERUM 0.5 mg/dL (0.6-1.2); GFR AFRICAN-AMERICAN > 60.0 ml/min (>90); GFR NON AFRICAN-AMERICAN > 60.0 ml/min; GLUCOSE 107 mg/dL (70-105); MAGNESIUM 1.7 mg/dL (1.9-2.7); POTASSIUM SERUM 3.9 mEq/L (3.5-5.1); SODIUM SERUM 135 mEq/L (136-145)
--- NOTE | 2017-08-02 20:40 | Progress Notes ---
DATE: 08/01/2017 Chart reviewed and the patient interviewed. Also, discussed the patient's condition with the staff and reviewed records and labs. The patient continued to be demanding. The patient also is in angry and in irritable mood. She also is easily agitated and she is aggressive with the staff and with peers. The patient also is still unable to provide any safe plan for self-care. She also still seems to be preoccupied and also argumentative, especially when talking about her medications and at times the patient does not want to take medications, but after the staff discussed the importance with taking medications the patient has been taking it. The patient denies any side effects of medications. ASSESSMENT: The patient is still agitated and is still demanding and psychotic. TREATMENT PLAN: We will continue to monitor the patient's behavior and condition closely. Also, continue adjusting psychotropic medications and working on her discharge plans and placement issue. JOB# [id number]
--- NOTE | 2017-08-03 02:49 | Progress Notes ---
DATE: SUBJECTIVE: Chart reviewed and the patient interviewed. Also discussed the patient's condition with the staff and reviewed records and labs. The patient continued to be impulsive and she is still in angry and in irritable moods. The patient also is intrusive to others and also the patient was interrupting me during my talking to the nurses and she is actively hallucinating. The patient also continued to talk about seeing demons and spirits and then yells and screams. She also still thinks that somebody out there to get her money and to bother her. On the other hand, the patient has continued to comply with taking her medications with no side effects of medications. ASSESSMENT: The patient is still agitated and in irritable mood and impulsive. TREATMENT PLAN: We will continue monitoring her behavior and her condition closely. Also, we will increase Seroquel to 150 mg twice a day and 400 mg at bedtime. Also, working with rehabilitation case coordinator in regard to discharge plans and placement issue and so far rehabilitation case coordinator is unable to give me any details about her discharge or where the patient can go to live. LABORATORY DATA: Depakote blood level that was done on 07/28 came back to be 68.9, which is within therapeutic level and we will continue at same dose and we will continue to follow up. JOB# [id number]
[2017-08-03] MEDS: Multivitamin Tab PO SCH (08:30)
[2017-08-03] MEDS: Magnesium Chloride EC 64mg Tab PO SCH (15:00)
--- NOTE | 2017-08-04 06:59 | Progress Notes ---
DATE: 08/03/2017 SUBJECTIVE: The patient seen and examined. The patient is lying in the bed. The patient has no chest pain, shortness of breath, palpitation, dizziness, nausea, vomiting. The patient is ambulatory. PHYSICAL EXAMINATION: VITAL SIGNS: Temperature 97.2, pulse 95, respiratory rate is 18, blood pressure 140/85. HEENT: No facial asymmetry. NECK: Supple, no JVD. HEART: Regular. CHEST AND LUNGS: Equal in expansion. No wheezing, no crackles. ABDOMEN: Soft. EXTREMITIES: No edema. LABORATORY DATA: On 08/02/2017 has been reviewed. Fasting blood sugar of 107 with magnesium of 1.7, potassium of 3.9. CLINICAL IMPRESSION: 1. Hyperglycemia. 2. Hypomagnesemia. 3. Metabolic syndrome 4. Hypertension. 5. Degenerative joint disease. 6. Psychotic disorder. 7. Coronary artery disease. PLAN: 1. Psychotic evaluation and management deferred to psychiatrist. 2. Give Slow-Mag. 3. Monitor blood pressure. 4. General nursing care. 5. Symptoms management. 6. Appropriate home medicine reconciliation. 7. Follow lab. 8. We will continue to follow this patient during the stay in the hospital. JOB# [id number]
--- NOTE | 2017-08-04 09:22 | Progress Notes ---
DATE: SUBJECTIVE: Chart reviewed and the patient interviewed. Also discussed the patient's condition with the staff and reviewed records and labs. The patient continued to be argumentative and she is still hyperverbal. The patient also is still easily agitated. The patient also is still suspicious and impulsive and demanding. She also is still paranoid and in angry mood. The patient also asking staff for food and when they provided her food, she takes it and threw it away on the floor and cursing staff after that for no apparent reason. Also, her personal hygiene is poor and the patient has been refusing to take a shower and her personal hygiene is deteriorating. Otherwise, the patient is compliant with taking her medications and no side effect of medications. ASSESSMENT: The patient is still agitated and impulsive and can be dangerous to others. TREATMENT PLAN: Continue to monitor her behavior and her condition closely. Also, we will increase Klonopin to 1 mg twice a day. Depakote blood level that was done on 07/28/2017 came back to be 68.9 and we will continue same dose of Klonopin. At the same time, we will increase Klonopin to 1 mg twice a day, hopefully to help with irritability and her agitation and we will continue to follow up closely. [facility]# [id number]
[2017-08-04] MEDS: Multivitamin Tab PO SCH (09:47)
[2017-08-04] MEDS: Magnesium Chloride EC 64mg Tab PO SCH (09:47)
--- NOTE | 2017-08-05 04:24 | Progress Notes ---
DATE: 08/04/2017 SUBJECTIVE: Chart reviewed and the patient interviewed. Also discussed the patient's condition with the staff and reviewed the records and labs. The patient continued to be in irritable and angry mood. The patient also is still argumentative and she still needs lots of redirections. She is intrusive to others. It seems slightly easier to redirect her. The patient also still has difficulty sleeping all night, but it seemed that she is sleeping slightly better. Otherwise, the patient continued to comply with taking her medications and no side effects of medications. ASSESSMENT: The patient is less manicky and less psychotic. TREATMENT PLAN: Continue to monitor her behavior. Also, case managers still has difficulty finding placement for the patient. Awaiting for placement and once placement is available, planning to discharge the patient to placement with plans for followup there. JOB# [id number]
[2017-08-05] MEDS: Multivitamin Tab PO SCH (09:02)
[2017-08-05] MEDS: Magnesium Chloride EC 64mg Tab PO SCH (09:02)
--- NOTE | 2017-08-05 17:16 | Discharge Summary ---
DATE OF DISCHARGE: 08/05/2017 PATIENT'S AGE: 56. SEX: Female. PHYSICIAN: Pradeep Darden M.D., M.P.H. FINAL DIAGNOSES AND PRIMARY DIAGNOSES: Schizoaffective disorder, bipolar type, severe, with psychotic features. REASON FOR HOSPITALIZATION: The patient was admitted to the hospital because of increased irritability and increased agitation in the custodial where she was living and she was aggressive and violent with the staff and they were not able to handle her agitation and irritability there. HOSPITAL COURSE: The patient continued to be extremely irritable and extremely agitated. The patient also was restless. The patient also was unable to answer any of my questions coherently and she kept being intrusive to staff and others. The patient also was in irritable mood. The patient was started on Seroquel and dose adjusted to 400 mg at bedtime and 200 mg twice a day. Also was giving Depakote 500 mg twice a day. The patient was calmer. Placement was an issue. Finally, [facility] accepted the patient and the patient discharged. Physical exam of the patient showed no major medical problems. AFTER DISCHARGE PLANS: The patient discharged from the hospital with plan to [place]. Plan to follow her there. LABORATORY DATA: Depakote blood level on 07/28/2017 was 68.9, which is within therapeutic level. EXPECTED OUTCOME AFTER DISCHARGE: Fair if the patient continues with her adjusting psychotropic medications and follow up with discharge plans. JOB# [id number]
--- NOTE | 2017-08-06 03:51 | Progress Notes ---
DATE: 08/05/2017 SUBJECTIVE: The patient is seen and examined. The patient is accepted to [facility] today. The patient is going to be discharged today. PHYSICAL EXAMINATION: GENERAL: The patient is more ambulatory and no new event. VITAL SIGNS: Temperature 98.2, pulse 94, respiratory rate 18, and blood pressure 114/80. HEENT: No facial asymmetry. Poor dentition. NECK: Supple, no JVD. HEART: Regular. CHEST: Lung equal in expansion. LUNGS: No wheezing, no crackles. ABDOMEN: Soft. EXTREMITIES: No edema. CLINICAL IMPRESSION: 1. Psychotic disorder. 2. Hypertension. 3. Obesity. 4. Degenerative joint disease. 5. Cutaneous candidiasis, resolved. 6. Coronary artery disease. PLAN: The patient is medically stable to be discharged to lower level of care. Have outpatient followup by her primary care physician as well as psychiatrist. JOB# [id number]
[2017-08-06] MEDS: Multivitamin Tab PO SCH (08:11)
[2017-08-06] MEDS: Magnesium Chloride EC 64mg Tab PO SCH (08:11)
--- NOTE | 2017-08-06 21:07 | Progress Notes ---
DATE: 08/06/2017 SUBJECTIVE: The patient in the hospital, history of bipolar, agitated, restless for a few days, not following directions, at other patients aggressive. Dr. Darden seeing the patient over the past couple of days, noting improvement, in fact the patient was to have been discharged yesterday, still remains irritable, angry, but redirectable. No agitation, no aggressive behavior, psychotic symptoms dissipating. The patient slept for about 5 hours, still with some suspicions. ASSESSMENT: The patient seems to be improving, calmer, psychotic symptoms dissipating. Medications seem to be effective. No overt side effects. No EPS for example, we will continue to monitor. JOB# [id number]
[2017-08-07] MEDS: Magnesium Chloride EC 64mg Tab PO SCH (08:16)
[2017-08-07] MEDS: Multivitamin Tab PO SCH (08:16)
--- NOTE | 2017-08-08 02:15 | Progress Notes ---
DATE: 08/07/2017 SUBJECTIVE: The patient in the hospital, agitated, restless, bizarre, stating that she is waiting for her daughter to be admitted to the hospital, stating her daughter needs to be a patient here, paranoid, slept for about 4 hours, delusional, singing loudly at times, mostly in her room, talking to self, making nonsensical statements, talking about people's spirits in the room. Medications were noted including doses and frequencies. ASSESSMENT: The patient remains symptomatic, bizarre, delusional, psychotic. PLAN: We will continue to monitor. Given her ongoing behaviors, she is not safe for discharge at this time. [facility]# [id number]
[2017-08-08] MEDS: Magnesium Chloride EC 64mg Tab PO SCH (08:48)
[2017-08-08] MEDS: Multivitamin Tab PO SCH (08:48)
--- NOTE | 2017-08-08 22:19 | Progress Notes ---
DATE: 08/08/2017 Case was discussed with staff of the patient, reviewed records. This is a well known history. I have seen her before covering for Dr. Darden. The patient is currently stable. No acting out behavior. She is sleeping well, eating well. The staff report that Dr. Darden gave an order for discharge and she is ready to go today. No side effects with the medication. The patient will follow up with the psychiatrist, primary care physician and a therapist. EXPECTED OUTCOME: Stable if the patient complies with the above. JOB# [id number]
== END 2017-08-08 17:00 | DRG 885 ==
LOC: ER 13:51 → GERO2 15:50 → GERO 07-14 16:47
PROVIDERS: ADMIT Psychiatry & Neurology Psychiatry; ATTEND Psychiatry & Neurology Psychiatry
DX: F25.0 Schizoaffective disorder, bipolar type (principal); I12.0 Hypertensive chronic kidney disease with stage 5 chronic kidney disease or end stage renal disease; N18.6 End stage renal disease; B37.9 Candidiasis, unspecified; I25.10 Atherosclerotic heart disease of native coronary artery without angina pectoris; E78.5 Hyperlipidemia, unspecified; M19.90 Unspecified osteoarthritis, unspecified site; F29 Unspecified psychosis not due to a substance or known physiological condition; E66.9 Obesity, unspecified; R73.9 Hyperglycemia, unspecified; E83.42 Hypomagnesemia; E88.81 Metabolic syndrome and other insulin resistance; Z68.37 Body mass index [BMI] 37.0-37.9, adult
CPT/HCPCS: 36415-UA; 80048-TC; 80053-TC; 80061-TC; 80164-TC; 80307; 80320-TC; 80329-TC; 81001-TC; 83036-90; 83735-TC; 84443-TC; 84703-TC; 85025-TC; 86592-TC; 93005; G0410; J1200; J1630; Q0177; Z7610

== ENCOUNTER 2017-09-15 18:41 | Inpatient (IN) | payer MEDICARE, OTHER ==
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
[2017-09-15 19:31] LABS: ACETAMINOPHEN < 10.0 ug/mL (10.0-30.0); ALB/GLOB RATIO 1.5 (1.0-1.8); ALBUMIN 3.8 gm/dL (3.7-5.3); ALKALINE PHOSPHATASE 74 U/L (34-104); ANION GAP 11.8 (7.0-16.0); BILIRUBIN,TOTAL 0.5 mg/dL (0.3-1.0); BUN - UREA NITROGEN 12 mg/dL (7-25); CALCIUM SERUM 9.8 mg/dL (8.6-10.3); CARBON DIOXIDE 26.2 mEq/L (21.0-31.0); CHLORIDE 99 mEq/L (98-107); CHOLESTEROL 120 mg/dL (<200); CREATININE - SERUM 0.5 mg/dL (0.6-1.2); GFR AFRICAN-AMERICAN > 60.0 ml/min (>90); GFR NON AFRICAN-AMERICAN > 60.0 ml/min; GLUCOSE 83 mg/dL (70-105); HDL -HIGH DENSITY LIPOPROTEIN 53 mg/dL (23-92); SGOT 27 U/L (13-39); SGPT/ALT 36 U/L (7-52); SODIUM SERUM 133 mEq/L (136-145); TOTAL PROTEIN,SERUM 6.3 gm/dL (6.0-8.3); TRIGLYCERIDES 61 mg/dL (<150)
[2017-09-15 19:33] LABS: SALICYLATES (ASPIRIN) < 25.0 mg/L (30.0-100.0)
[2017-09-15 19:38] LABS: % EOSINOPHILS 2.3 % (0.0-5.0); % LYMPHOCYTES 24.6 % (20.0-50.0); % MONOCYTES 10.2 % (2.0-10.0); % NEUTROPHILS 62.9 % (40.0-80.0); EOSINOPHILE ABSOLUTE 0.2 Th/cmm (0.1-0.4); LYMPHOCYTE ABSOLUTE 1.7 Th/cmm (1.5-3.0); MEAN CELL VOLUME 90.6 fl (81-100); MEAN CORPUSCULAR HEMOGLOBIN 30.3 pg (27.0-31.0); MEAN CORPUSCULAR HGB CONC 33.4 pg (28.0-36.0); MEAN PLATELET VOLUME 8.1 fl; MONOCYTE ABSOLUTE 0.7 Th/cmm (0.3-1.0); NEUTROPHILE ABSOLUTE 4.2 Th/cmm (1.8-8.0); PLATELET COUNT 179 Th/cmm (150-400); WHITE BLOOD COUNT 6.8 Th/cmm (4.8-10.8)
[2017-09-15 19:46] LABS: URINE MICROSCOPIC INDICATED? YES; URINE SOURCE CLEAN C
[2017-09-15 19:48] LABS: URINE BILIRUBIN NEGATIVE (NEGATIVE); URINE BLOOD NEGATIVE (NEGATIVE); URINE GLUCOSE (UA) NEGATIVE (NEGATIVE); URINE KETONE NEGATIVE (NEGATIVE); URINE LEUKOCYTE ESTERASE NEGATIVE (NEGATIVE); URINE NITRATE NEGATIVE (NEGATIVE); URINE PH 5.5 (4.6 - 8.0); URINE PROTEIN NEGATIVE (NEGATIVE); URINE UROBILINOGEN 0.2 E.U./dL (0.2 - 1.0)
[2017-09-15 19:50] LABS: URINE CLARITY CLEAR (CLEAR); URINE COLOR YELLOW
[2017-09-15 19:51] LABS: URINE BACTERIA NONE SEEN /hpf (NONE SEEN); URINE EPITHELIAL CELLS NONE SEEN /lpf (FEW); URINE RBC NONE SEEN /hpf (0-5); URINE WBC NONE SEEN /hpf (0-5)
[2017-09-15 20:07] LABS: AMPHETAMINE URINE NEGATIVE (NEGATIVE); BARBITURATES URINE NEGATIVE (NEGATIVE); BENZODIAZEPINES QUAL URINE NEGATIVE (NEGATIVE); CANNABINOID THC NEGATIVE (NEGATIVE); COCAINE METABOLITE QUAL URINE NEGATIVE (NEGATIVE); METHADONE URINE NEGATIVE (NEGATIVE); METHAMPHETAMINES QUAL URINE NEGATIVE (NEGATIVE); OPIATES (MORPHINE) QUAL. URINE NEGATIVE (NEGATIVE); PHENCYCLIDINE (PCP) URINE NEGATIVE (NEGATIVE); TRICYCLICS (TCA) QUAL. URINE POSITIVE (NEGATIVE)
[2017-09-15 21:20] LABS: A1C % 5.2 % (4.0-6.0)
[2017-09-15 21:52] VITALS: BP 143/88
[2017-09-15] MEDS ORDERED: Magnesium Hydroxide (MOM) 30 mL UDC PO PRN (23:06)
[2017-09-15] MEDS ORDERED: Maalox 30 mL Cup PO PRN (23:12)
[2017-09-16] MEDS ORDERED: VALPROIC ACID PO SCH (09:00)
[2017-09-16] MEDS: risperiDONE 4 mg Tab PO SCH ×2 (09:13→16:33)
[2017-09-16] MEDS: Multivitamin Tab PO SCH (09:13)
[2017-09-16] MEDS: Magnesium Chloride EC 64mg Tab PO SCH (09:13)
[2017-09-17] MEDS: Magnesium Chloride EC 64mg Tab PO SCH (08:21)
[2017-09-17] MEDS: Multivitamin Tab PO SCH (08:26)
[2017-09-17] MEDS: risperiDONE 4 mg Tab PO SCH ×2 (08:26→16:18)
--- NOTE | 2017-09-17 20:13 | Psychiatric Evaluation ---
DATE OF SERVICE: 09/17/2017 PSYCHIATRIC INITIAL EVALUATION AND MENTAL STATUS EXAM AGE: 56. SEX: Female. PHYSICIAN: Dr. Darden. CHIEF COMPLAINT: Disruptive behavior and aggressive towards staff and others. HISTORY OF PRESENT ILLNESS: The patient is a 56-year-old female who was transferred from [facility] because of increased agitation and because of irritability. The patient has been aggressive with the staff in the facility and not been able to follow any of staff directions. The patient also has been verbally abusive and hostile towards others including yelling and screaming. The patient also is in angry mood and has been suspicious and paranoid. She has been taking Klonopin 1 mg twice a day and has been also taking Seroquel in dose of 50 mg at bedtime but her behavior continued to deteriorate. PAST PSYCHIATRIC HISTORY: The patient has history of what seems to be schizoaffective disorder versus schizophrenia. PAST MEDICAL HISTORY: The patient has a history of peripheral edema. Also, about she has a history of hypertension and arthritis as well as hyperlipidemia. SOCIAL HISTORY: The patient lives in [facility]. No known alcohol or drug use. ALLERGIES: No known allergies. MENTAL STATUS EXAMINATION: The patient appears much older than stated age. Disheveled. Flat affect. Irritable mood. Thought processes are circumstantial with occasional flight of ideas. The patient denies any hallucinations but seems to be suspicious and paranoid. The patient denies any thoughts of suicide or homicide. The patient is alert and oriented to time, place, person, and situation. Intact immediate memory and she remembered the events happened prior to this admission. Intact recent memory and she remembered the events happened two weeks ago. Intact remote memory and she remembered her date. Poor insight. Poor judgment. ASSESSMENT: PRIMARY DIAGNOSES: Schizoaffective disorder, bipolar type, severe, with psychotic features. TREATMENT PLAN: We will monitor the patient's behavior and condition closely. We will start individual as well as milieu psychotherapy. We will monitor psychotropic medications. ESTIMATED LENGTH OF STAY: 5-7 days. PATIENT STRENGTHS AND WEAKNESSES: The patient's strength is not clear at this time. Weaknesses: Her ineffective coping and poor judgment and poor impulse control. AFTER DISCHARGE PLAN: The patient will return to [facility] with plans for outpatient treatment followup. CRITERIA FOR DISCHARGE: The patient will not be psychotic and will stabilize psychotropic medications and will establish outpatient treatment plans. JOB# [id number]
--- NOTE | 2017-09-17 23:33 | History & Physical ---
ADMIT DATE: 09/15/2017 REASON FOR ADMISSION: Psychiatric disorders. HISTORY OF PRESENT ILLNESS: This is a 56-year-old female with underlying history of hypertension, mental health disorders, admitted to [facility] for underlying psychiatric illness by Dr. Darden. Dr. Darden is evaluating this patient. The patient denies any complaints or concerns. PAST MEDICAL HISTORY: As per HPI. PAST SURGICAL HISTORY: None reported significant past surgery. FAMILY HISTORY: Noncontributory. SOCIAL HISTORY: No reported alcohol, tobacco, or street drug use. MEDICATIONS: On Seroquel, Risperdal, Depakene, Ambien, multivitamins, Flomax, Restoril, Lasix, Benadryl, Klonopin, Coreg, Maalox, Tylenol. REVIEW OF SYSTEMS: No fever, no chills, no diarrhea, no vomiting. CHEST: No trouble breathing. No headache. No visual or speech disturbances. No dysuria or hematuria. No constipation, diarrhea, or rectal bleeding. PHYSICAL EXAMINATION: VITAL SIGNS: Temperature 98.3, pulse 86, respirations 19, blood pressure 142/66, 95% on room air. HEENT: Unremarkable. HEART: S1, S2 normal. LUNGS: Clear to auscultation bilaterally. ABDOMEN: Soft, nontender. No guarding. NEUROLOGIC: The patient is awake. Moves all extremities. Grossly nonfocal. EXTREMITIES: No edema. AVAILABLE LABORATORY DATA: As follows: WBC 6.8, hemoglobin 13.0, hematocrit 39.0, platelets 179. Sodium 132, potassium is 4.0, BUN 12, creatinine 0.5. Hemoglobin A1c 5.2. AST 27, ALT 36. LDL 40. TSH 1.19. Urine negative for leuko, negative for nitrites. Urine drug screen ____ for any drugs. IMPRESSION: 1. Hypertension. 2. Mild hyponatremia. 3. Mental health disorders. PLAN: The patient admitted to [facility]. Psych management per psychiatrist. Continue patient's blood pressure medication, monitor blood pressures. Fall precaution, aspiration precautions. Monitor for psychotropic drug side effects. The patient's labs reviewed. Discussed the patient's condition and plan of care discussed with nursing staff. JOB# [id number]
[2017-09-18] MEDS: Multivitamin Tab PO SCH (09:10)
[2017-09-18] MEDS: Magnesium Chloride EC 64mg Tab PO SCH (09:10)
[2017-09-18] MEDS: risperiDONE 4 mg Tab PO SCH ×2 (09:30→16:52)
--- NOTE | 2017-09-18 16:04 | General Progress Note ---
Subjective - Review of Systems Service Date: 09/18/17 Subjective: patient doing ok Per nursing staff patient refused her BP meds this am Objective - Results Result Diagrams: 09/15/17 19:05 09/15/17 19:05 Recent Labs: Laboratory Last Values WBC 6.8 Th/cmm (4.8-10.8) 09/15/17 19:05 RBC 4.30 Mil/cmm (3.80-5.10) 09/15/17 19:05 Hgb 13.0 gm/dL (12-16) 09/15/17 19:05 Hct 39.0 % (41.0-60) L 09/15/17 19:05 MCV 90.6 fl (81-100) 09/15/17 19:05 MCH 30.3 pg (27.0-31.0) 09/15/17 19:05 MCHC Differential 33.4 pg (28.0-36.0) 09/15/17 19:05 RDW 13.0 % (11.5-20.0) 09/15/17 19:05 Plt Count 179 Th/cmm (150-400) 09/15/17 19:05 MPV 8.1 fl 09/15/17 19:05 Neutrophils % 62.9 % (40.0-80.0) 09/15/17 19:05 Lymphocytes % 24.6 % (20.0-50.0) 09/15/17 19:05 Monocytes % 10.2 % (2.0-10.0) H 09/15/17 19:05 Eosinophils % 2.3 % (0.0-5.0) 09/15/17 19:05 Basophils % 0.0 % (0.0-2.0) 09/15/17 19:05 Sodium 133 mEq/L (136-145) L 09/15/17 19:05 Potassium 4.0 mEq/L (3.5-5.1) 09/15/17 19:05 Chloride 99 mEq/L (98-107) 09/15/17 19:05 Carbon Dioxide 26.2 mEq/L (21.0-31.0) 09/15/17 19:05 Anion Gap 11.8 (7.0-16.0) 09/15/17 19:05 BUN 12 mg/dL (7-25) 09/15/17 19:05 Creatinine 0.5 mg/dL (0.6-1.2) L 09/15/17 19:05 Est GFR ( Amer) > 60.0 ml/min (>90) 09/15/17 19:05 Est GFR (Non-Af Amer) > 60.0 ml/min 09/15/17 19:05 BUN/Creatinine Ratio 24.0 09/15/17 19:05 Glucose 83 mg/dL (70-105) 09/15/17 19:05 Hemoglobin A1c % 5.2 % (4.0-6.0) 09/15/17 19:05 Calcium 9.8 mg/dL (8.6-10.3) 09/15/17 19:05 Total Bilirubin 0.5 mg/dL (0.3-1.0) 09/15/17 19:05 AST 27 U/L (13-39) 09/15/17 19:05 ALT 36 U/L (7-52) 09/15/17 19:05 Alkaline Phosphatase 74 U/L (34-104) 09/15/17 19:05 Troponin I < 0.01 ng/mL (0.01-0.05) L 09/15/17 19:05 Total Protein 6.3 gm/dL (6.0-8.3) 09/15/17 19:05 Albumin 3.8 gm/dL (3.7-5.3) 09/15/17 19:05 Globulin 2.5 gm/dL 09/15/17 19:05 Albumin/Globulin Ratio 1.5 (1.0-1.8) 09/15/17 19:05 Triglycerides 61 mg/dL (<150) 09/15/17 19:05 Cholesterol 120 mg/dL (<200) 09/15/17 19:05 LDL Cholesterol Direct 48 mg/dL (75-193) L 09/15/17 19:05 HDL Cholesterol 53 mg/dL (23-92) 09/15/17 19:05 TSH 1.19 uIU/ml (0.34-5.60) 09/15/17 19:05 Urine Source CLEAN C 09/15/17 19:43 Urine Color YELLOW 09/15/17 19:43 Urine Clarity CLEAR (CLEAR) 09/15/17 19:43 Urine pH 5.5 (4.6 - 8.0) 09/15/17 19:43 Ur Specific [place] <= 1.005 (1.005-1.030) 09/15/17 19:43 Urine Protein NEGATIVE mg/dL (NEGATIVE) 09/15/17 19:43 Urine Glucose (UA) NEGATIVE mg/dL (NEGATIVE) 09/15/17 19:43 Urine Ketones NEGATIVE mg/dL (NEGATIVE) 09/15/17 19:43 Urine Blood NEGATIVE (NEGATIVE) 09/15/17 19:43 Urine Nitrate NEGATIVE (NEGATIVE) 09/15/17 19:43 Urine Bilirubin NEGATIVE (NEGATIVE) 09/15/17 19:43 Urine Urobilinogen 0.2 E.U./dL (0.2 - 1.0) 09/15/17 19:43 Ur Leukocyte Esterase NEGATIVE (NEGATIVE) 09/15/17 19:43 Urine RBC NONE SEEN /hpf (0-5) 09/15/17 19:43 Urine WBC NONE SEEN /hpf (0-5) 09/15/17 19:43 Ur Epithelial Cells NONE SEEN /lpf (FEW) 09/15/17 19:43 Urine Bacteria NONE SEEN /hpf (NONE SEEN) 09/15/17 19:43 Salicylates < 25.0 mg/L (30.0-100.0) L 09/15/17 19:05 Urine Opiates Screen NEGATIVE (NEGATIVE) 09/15/17 19:43 Urine Methadone Screen NEGATIVE (NEGATIVE) 09/15/17 19:43 Acetaminophen < 10.0 ug/mL (10.0-30.0) L 09/15/17 19:05 Ur Barbiturates Screen NEGATIVE (NEGATIVE) 09/15/17 19:43 Ur Tricyclics Screen POSITIVE (NEGATIVE) H 09/15/17 19:43 Ur Phencyclidine Scrn NEGATIVE (NEGATIVE) 09/15/17 19:43 Amphetamines Screen NEGATIVE (NEGATIVE) 09/15/17 19:43 U Methamphetamines Scrn NEGATIVE (NEGATIVE) 09/15/17 19:43 U Benzodiazepines Scrn NEGATIVE (NEGATIVE) 09/15/17 19:43 U Cocaine Metab Screen NEGATIVE (NEGATIVE) 09/15/17 19:43 U Cannabinoids Screen NEGATIVE (NEGATIVE) 09/15/17 19:43 Ethyl Alcohol < 10 mg/dL (0-10) 09/15/17 19:05 RPR NONREACTIVE (NONREACTIVE) 09/15/17 19:05 - Physical Exam Vitals and I&O: Vital Signs Temp 96.3 F 09/18/17 15:57 Pulse 79 09/18/17 15:57 Resp 19 09/18/17 15:57 BP 196/104 09/18/17 15:57 Pulse Ox 96 09/18/17 15:57 Active Medications: Current Medications Acetaminophen (Tylenol) 650 mg PO Q4HR PRN PRN Reason: Mild Pain / Temp above 101 Stop: 11/14/17 23:05 Al Hydrox/Mg Hydrox/Simethicone (Maalox) 30 ml PO Q4HR PRN PRN Reason: GI DISTRESS Stop: 11/14/17 23:11 Bisacodyl (Dulcolax 10 Mg Supp) 10 mg RC DAILY PRN PRN Reason: IF MOM INEFFECTIVE Stop: 11/14/17 23:05 Carvedilol (Coreg) 6.25 mg PO BID [facility] Stop: 11/15/17 08:59 Last Admin: 09/18/17 09:30 Dose: Not Given Clonazepam (Klonopin) 1 mg PO BID [facility]; Protocol Stop: 11/15/17 08:59 Last Admin: 09/18/17 09:10 Dose: Not Given Diphenhydramine HCl (Benadryl) 50 mg PO HS [facility] Stop: 11/15/17 20:59 Last Admin: 09/17/17 21:37 Dose: 50 mg Docusate Sodium (Colace) 100 mg PO DAILY [facility] Stop: 11/15/17 08:59 Last Admin: 09/18/17 09:00 Dose: Not Given Furosemide (Lasix) 40 mg PO DAILY [facility] Stop: 11/15/17 08:59 Last Admin: 09/18/17 09:30 Dose: Not Given Hydroxyzine Pamoate (Vistaril) 25 mg PO Q4HR [facility]; Protocol Stop: 11/15/17 00:00 Last Admin: 09/18/17 13:48 Dose: Not Given Magnesium Chloride (Slow-Mag) 1 ect PO DAILY [facility] Stop: 11/15/17 08:59 Last Admin: 09/18/17 09:10 Dose: Not Given Magnesium Hydroxide (Milk Of Magnesia) 30 ml PO HS PRN PRN Reason: Constipation Stop: 11/14/17 23:05 Multivitamins/Vitamin C (Theragran) 1 tab PO DAILY [facility] Stop: 11/15/17 08:59 Last Admin: 09/18/17 09:10 Dose: Not Given Quetiapine Fumarate (Seroquel) 200 mg PO BID [facility]; Protocol Stop: 11/15/17 08:59 Last Admin: 09/18/17 09:30 Dose: Not Given Quetiapine Fumarate (Seroquel) 400 mg PO HS [facility]; Protocol Stop: 11/15/17 20:59 Last Admin: 09/17/17 21:38 Dose: 400 mg Risperidone (Risperdal) 2 mg PO BID [facility]; Protocol Stop: 11/15/17 08:59 Last Admin: 09/18/17 09:30 Dose: Not Given Valproate Sodium (Depakene) 250 mg PO BID [facility] Stop: 11/15/17 08:59 Last Admin: 09/18/17 09:30 Dose: Not Given Zolpidem Tartrate (Ambien) 5 mg PO PRN PRN PRN Reason: Insomnia Stop: 11/14/17 23:05 Cardiovascular: Regular rate Lungs: Clear to auscultation Assessment/Plan - Problem List Patient Problems: All Active Problems INCREASED AGITATION/AGGRESION (Acute) - Assessment Assessment: HTN Non compliance Mental health disorder - Plan Plan: Monitor BP Continue current BP meds Medication compliance
--- NOTE | 2017-09-18 19:36 | Progress Notes ---
DATE: 09/18/2017 SUBJECTIVE: Chart reviewed and the patient interviewed. Also, discussed the patient's condition with the staff and reviewed records and labs. The patient is still severely angry and have angry outbursts. The patient answers to my questions, was "I don't care." She is trying to stay naked in spite of staff trying to help her out, but she refuses help. The patient also trying to hit and kicked the doors. She also has difficulty following staff directions. Otherwise, the patient is compliant with taking medications with no side effect of medications. The patient, currently is taking Seroquel 200 mg twice a day and 400 mg at bedtime as well as Risperdal 2 mg twice a day and Depakote 250 mg twice a day. Depakote blood level is pending. JOB# [id number]
[2017-09-19] MEDS: risperiDONE 4 mg Tab PO SCH ×3 (08:30→16:42)
[2017-09-19] MEDS: Multivitamin Tab PO SCH ×2 (08:30→09:43)
[2017-09-19] MEDS: Magnesium Chloride EC 64mg Tab PO SCH ×2 (08:36→09:43)
[2017-09-19] MEDS ORDERED: Haloperidol Lactate 5 mg/mL 1mL Vial ONE (11:50)
[2017-09-19] MEDS ORDERED: Haloperidol Lactate 5 mg/mL 1mL Vial IM ONE (12:01)
--- NOTE | 2017-09-19 13:14 | Progress Notes ---
DATE: 09/17/2017 PATIENT OF: Pradeep Darden M.D. SUBJECTIVE: The patient interviewed. Case discussed with staff and chart reviewed. Per the staff, the patient has been labile and unpredictable on the unit. The patient was interviewed this morning in the mensah hallway. The patient is actively responding to internal stimuli. She is threatening the staff. She is wheelchairing around the unit and threatening others that she passes by. She is also heavily responding to internal stimuli, very easily provoked and agitated. When I attempted to interview the patient, but she began immediately yelling at this provider and threatening this provider. MENTAL STATUS EXAMINATION: The patient appears in a wheelchair. She is unkempt. She has poor eye contact. Her speech is loud, hyperverbal and pressured. Her mood and affect are labile. Thought process is disorganized. Unable to assess suicidal or homicidal ideations, but she is hostile and threatening. She is also responding heavily to internal stimuli. She is also paranoid of others. She is alert and oriented to person. She does understand she is in the hospital. Her insight, judgment and impulse control remain very poor. ASSESSMENT: This is a 56-year-old female admitted to [facility] for acute psychosis and agitation. The patient at this time continues to be aggressive. She continues to be threatening. She is a verbally threatening to providers and other patients on the unit. She is easily hostile. In addition, she is responding heavily to internal stimuli. PLAN: I will continue the patient's acute hospitalization. We will continue the medications prescribed. Encourage the patient to verbalize her needs. Encourage the patient to participate in group and milieu therapy. Encourage the patient to work with the social security benefits interviewer and special education case manager for discharge planning and need for any community resources. JOB# [id number] KIMI
--- NOTE | 2017-09-19 22:56 | Progress Notes ---
DATE: 09/19/[address] Darden. SUBJECTIVE: Case was discussed with staff of the patient, reviewed records. This is a 56-year-old female who was admitted on 09/17/2017 because of aggressive behavior towards staff and others. The patient transferred from [place]. The patient has been agitated. The patient continues to be agitated, had to be given emergency medication an hour ago. The patient has a history of schizoaffective disorder or schizophrenia. She is also unpredictable, impulsive, unable to make safe plan for self-care. She also has been refusing her medication at times and she is on Seroquel 200 mg twice a day, 400 mg at bedtime, Depakote 250 mg twice a day. We will continue to work with the patient in group therapy, milieu therapy, and adjust the medications as needed. JOB# [id number]
[2017-09-20] MEDS: Magnesium Chloride EC 64mg Tab PO SCH ×2 (09:14→09:24)
[2017-09-20] MEDS: risperiDONE 4 mg Tab PO SCH ×3 (09:15→17:29)
[2017-09-20] MEDS: Multivitamin Tab PO SCH (09:15)
[2017-09-20] MEDS ORDERED: Haloperidol Lactate 5 mg/mL 1mL Vial IM ONE (16:34)
[2017-09-20] MEDS ORDERED: Haloperidol Lactate 5 mg/mL 1mL Vial ONE (16:35)
--- NOTE | 2017-09-20 20:34 | Progress Notes ---
DATE: 09/20/2017 Case was discussed with staff of the patient and records. The patient continues to be easily agitated, continues to be unpredictable, impulsive. Yesterday, she had to get emergency medication today. She is a bit calmer. Continues to be unpredictable, impulsive, having poor insight. Unable to make safe plan for self-care. Also, has been refusing medication at times. No side effects with the medication, no sedation, no nausea, and no extrapyramidal symptoms. We will continue to work with the patient group therapy, milieu therapy, and adjust the medications as needed. JOB# [id number]
[2017-09-21] MEDS: Magnesium Chloride EC 64mg Tab PO SCH (09:00)
[2017-09-21] MEDS: risperiDONE 4 mg Tab PO SCH ×2 (09:00→16:53)
[2017-09-21] MEDS: Multivitamin Tab PO SCH (09:00)
[2017-09-21] MEDS ORDERED: chlorproMAZINE 25 mg/mL 2mL Amp ONE (09:35)
[2017-09-21] MEDS ORDERED: chlorproMAZINE 25 mg/mL 2mL Amp IM STA (09:36)
[2017-09-22] MEDS: Magnesium Chloride EC 64mg Tab PO SCH (09:40)
[2017-09-22] MEDS: Multivitamin Tab PO SCH (09:42)
[2017-09-22] MEDS: risperiDONE 4 mg Tab PO SCH ×3 (09:42→17:21)
--- NOTE | 2017-09-22 17:23 | Progress Notes ---
DATE: SUBJECTIVE: Case was discussed with staff of the patient. I am seeing this patient simply because apparently the patient has a court hearing today and she cannot go, and they want a paper stating that she cannot go. So, I had to evaluate her. The patient is a well-known case to me as I have seen her before covering for Dr. Darden, was last visit on 09/20/2017. The patient continues to be impulsive, unpredictable, continues to need emergency medication. Continues to be confused, having very poor insight. Unable to make safe plan for self-care. At times, noncompliant with her medications, so at this point, because of her confusion she is incapable of going to court and testifying and she may also act out during the process, so I will be signing this statement saying that the patient cannot attend the court because of her impulsivity, confusion, acting out, unpredictable behavior and Dr. Darden is managing her medications. JOB# [id number]
--- NOTE | 2017-09-22 21:52 | Progress Notes ---
DATE: 09/22/2017 SUBJECTIVE: Chart reviewed and the patient interviewed. Also discussed the patient's condition with the staff and reviewed records and labs. The patient remains extremely agitated and in irritable mood. The patient is banging on doors. She also is intrusive and she is yelling and screaming and have difficulty following staff directions. She also has still difficulty expressing herself and her feelings. Otherwise, the patient is compliant with taking her medications with no side effects of medications. ASSESSMENT: The patient is still irritable and agitated. TREATMENT PLAN: We will continue Seroquel in a dose of 200 mg twice a day and 400 mg at bedtime and continue Risperdal 2 mg twice a day. Also, we will increase Klonopin to 1.5 mg twice a day and continue to work on behavior modification and her irritability. JOB# [id number]
[2017-09-23] MEDS: Magnesium Chloride EC 64mg Tab PO SCH ×2 (08:47→08:58)
[2017-09-23] MEDS: Multivitamin Tab PO SCH (08:47)
[2017-09-23] MEDS: risperiDONE 4 mg Tab PO SCH ×2 (08:48→16:45)
[2017-09-23] MEDS ORDERED: chlorproMAZINE 25 mg/mL 2mL Amp ONE (12:01)
[2017-09-23] MEDS ORDERED: chlorproMAZINE 25 mg/mL 2mL Amp IM ONE (12:17)
--- NOTE | 2017-09-23 22:09 | General Progress Note ---
Subjective - Review of Systems Subjective: patient doing ok Per nursing staff patient refused her BP meds this am Objective - Results Result Diagrams: 09/15/17 19:05 09/15/17 19:05 Recent Labs: Laboratory Last Values WBC 6.8 Th/cmm (4.8-10.8) 09/15/17 19:05 RBC 4.30 Mil/cmm (3.80-5.10) 09/15/17 19:05 Hgb 13.0 gm/dL (12-16) 09/15/17 19:05 Hct 39.0 % (41.0-60) L 09/15/17 19:05 MCV 90.6 fl (81-100) 09/15/17 19:05 MCH 30.3 pg (27.0-31.0) 09/15/17 19:05 MCHC Differential 33.4 pg (28.0-36.0) 09/15/17 19:05 RDW 13.0 % (11.5-20.0) 09/15/17 19:05 Plt Count 179 Th/cmm (150-400) 09/15/17 19:05 MPV 8.1 fl 09/15/17 19:05 Neutrophils % 62.9 % (40.0-80.0) 09/15/17 19:05 Lymphocytes % 24.6 % (20.0-50.0) 09/15/17 19:05 Monocytes % 10.2 % (2.0-10.0) H 09/15/17 19:05 Eosinophils % 2.3 % (0.0-5.0) 09/15/17 19:05 Basophils % 0.0 % (0.0-2.0) 09/15/17 19:05 Sodium 133 mEq/L (136-145) L 09/15/17 19:05 Potassium 4.0 mEq/L (3.5-5.1) 09/15/17 19:05 Chloride 99 mEq/L (98-107) 09/15/17 19:05 Carbon Dioxide 26.2 mEq/L (21.0-31.0) 09/15/17 19:05 Anion Gap 11.8 (7.0-16.0) 09/15/17 19:05 BUN 12 mg/dL (7-25) 09/15/17 19:05 Creatinine 0.5 mg/dL (0.6-1.2) L 09/15/17 19:05 Est GFR ( Amer) > 60.0 ml/min (>90) 09/15/17 19:05 Est GFR (Non-Af Amer) > 60.0 ml/min 09/15/17 19:05 BUN/Creatinine Ratio 24.0 09/15/17 19:05 Glucose 83 mg/dL (70-105) 09/15/17 19:05 Hemoglobin A1c % 5.2 % (4.0-6.0) 09/15/17 19:05 Calcium 9.8 mg/dL (8.6-10.3) 09/15/17 19:05 Total Bilirubin 0.5 mg/dL (0.3-1.0) 09/15/17 19:05 AST 27 U/L (13-39) 09/15/17 19:05 ALT 36 U/L (7-52) 09/15/17 19:05 Alkaline Phosphatase 74 U/L (34-104) 09/15/17 19:05 Troponin I < 0.01 ng/mL (0.01-0.05) L 09/15/17 19:05 Total Protein 6.3 gm/dL (6.0-8.3) 09/15/17 19:05 Albumin 3.8 gm/dL (3.7-5.3) 09/15/17 19:05 Globulin 2.5 gm/dL 09/15/17 19:05 Albumin/Globulin Ratio 1.5 (1.0-1.8) 09/15/17 19:05 Triglycerides 61 mg/dL (<150) 09/15/17 19:05 Cholesterol 120 mg/dL (<200) 09/15/17 19:05 LDL Cholesterol Direct 48 mg/dL (75-193) L 09/15/17 19:05 HDL Cholesterol 53 mg/dL (23-92) 09/15/17 19:05 TSH 1.19 uIU/ml (0.34-5.60) 09/15/17 19:05 Urine Source CLEAN C 09/15/17 19:43 Urine Color YELLOW 09/15/17 19:43 Urine Clarity CLEAR (CLEAR) 09/15/17 19:43 Urine pH 5.5 (4.6 - 8.0) 09/15/17 19:43 Ur Specific [place] <= 1.005 (1.005-1.030) 09/15/17 19:43 Urine Protein NEGATIVE mg/dL (NEGATIVE) 09/15/17 19:43 Urine Glucose (UA) NEGATIVE mg/dL (NEGATIVE) 09/15/17 19:43 Urine Ketones NEGATIVE mg/dL (NEGATIVE) 09/15/17 19:43 Urine Blood NEGATIVE (NEGATIVE) 09/15/17 19:43 Urine Nitrate NEGATIVE (NEGATIVE) 09/15/17 19:43 Urine Bilirubin NEGATIVE (NEGATIVE) 09/15/17 19:43 Urine Urobilinogen 0.2 E.U./dL (0.2 - 1.0) 09/15/17 19:43 Ur Leukocyte Esterase NEGATIVE (NEGATIVE) 09/15/17 19:43 Urine RBC NONE SEEN /hpf (0-5) 09/15/17 19:43 Urine WBC NONE SEEN /hpf (0-5) 09/15/17 19:43 Ur Epithelial Cells NONE SEEN /lpf (FEW) 09/15/17 19:43 Urine Bacteria NONE SEEN /hpf (NONE SEEN) 09/15/17 19:43 Salicylates < 25.0 mg/L (30.0-100.0) L 09/15/17 19:05 Urine Opiates Screen NEGATIVE (NEGATIVE) 09/15/17 19:43 Urine Methadone Screen NEGATIVE (NEGATIVE) 09/15/17 19:43 Acetaminophen < 10.0 ug/mL (10.0-30.0) L 09/15/17 19:05 Ur Barbiturates Screen NEGATIVE (NEGATIVE) 09/15/17 19:43 Ur Tricyclics Screen POSITIVE (NEGATIVE) H 09/15/17 19:43 Ur Phencyclidine Scrn NEGATIVE (NEGATIVE) 09/15/17 19:43 Amphetamines Screen NEGATIVE (NEGATIVE) 09/15/17 19:43 U Methamphetamines Scrn NEGATIVE (NEGATIVE) 09/15/17 19:43 U Benzodiazepines Scrn NEGATIVE (NEGATIVE) 09/15/17 19:43 U Cocaine Metab Screen NEGATIVE (NEGATIVE) 09/15/17 19:43 U Cannabinoids Screen NEGATIVE (NEGATIVE) 09/15/17 19:43 Ethyl Alcohol < 10 mg/dL (0-10) 09/15/17 19:05 RPR NONREACTIVE (NONREACTIVE) 09/15/17 19:05 - Physical Exam Vitals and I&O: Vital Signs Temp 98.2 F 09/23/17 14:15 Pulse 96 09/23/17 16:45 Resp 19 09/23/17 14:15 BP 146/84 09/23/17 16:45 Pulse Ox 97 09/23/17 14:15 Intake & Output 09/23/17 09/23/17 09/24/17 06:59 18:59 06:59 Intake Total 990 Balance 990 Intake: Oral 990 Other: # Voids 5 # Bowel Movements 0 Active Medications: Current Medications Acetaminophen (Tylenol) 650 mg PO Q4HR PRN PRN Reason: Mild Pain / Temp above 101 Stop: 11/14/17 23:05 Al Hydrox/Mg Hydrox/Simethicone (Maalox) 30 ml PO Q4HR PRN PRN Reason: GI DISTRESS Stop: 11/14/17 23:11 Bisacodyl (Dulcolax 10 Mg Supp) 10 mg RC DAILY PRN PRN Reason: IF MOM INEFFECTIVE Stop: 11/14/17 23:05 Carvedilol (Coreg) 6.25 mg PO BID [facility] Stop: 11/15/17 08:59 Last Admin: 09/23/17 16:45 Dose: 6.25 mg Clonazepam (Klonopin) 1.5 mg PO BID [facility]; Protocol Stop: 11/21/17 08:59 Last Admin: 09/23/17 16:45 Dose: 1.5 mg Diphenhydramine HCl (Benadryl) 50 mg PO HS [facility] Stop: 11/15/17 20:59 Last Admin: 09/23/17 20:36 Dose: 50 mg Docusate Sodium (Colace) 100 mg PO DAILY [facility] Stop: 11/15/17 08:59 Last Admin: 09/23/17 08:45 Dose: 100 mg Furosemide (Lasix) 40 mg PO DAILY [facility] Stop: 11/15/17 08:59 Last Admin: 09/23/17 08:46 Dose: 40 mg Hydroxyzine Pamoate (Vistaril) 25 mg PO Q4HR [facility]; Protocol Stop: 11/15/17 00:00 Last Admin: 09/23/17 20:36 Dose: 25 mg Magnesium Chloride (Slow-Mag) 1 ect PO DAILY [facility] Stop: 11/15/17 08:59 Last Admin: 09/23/17 08:58 Dose: Not Given Magnesium Hydroxide (Milk Of Magnesia) 30 ml PO HS PRN PRN Reason: Constipation Stop: 11/14/17 23:05 Multivitamins/Vitamin C (Theragran) 1 tab PO DAILY [facility] Stop: 11/15/17 08:59 Last Admin: 09/23/17 08:47 Dose: 1 tab Quetiapine Fumarate (Seroquel) 200 mg PO BID [facility]; Protocol Stop: 11/15/17 08:59 Last Admin: 09/23/17 16:44 Dose: 200 mg Quetiapine Fumarate (Seroquel) 400 mg PO HS [facility]; Protocol Stop: 11/15/17 20:59 Last Admin: 09/23/17 21:06 Dose: Not Given Risperidone (Risperdal) 2 mg PO BID [facility]; Protocol Stop: 11/15/17 08:59 Last Admin: 09/23/17 16:45 Dose: 2 mg Valproate Sodium (Depakene) 250 mg PO BID [facility] Stop: 11/15/17 08:59 Last Admin: 09/23/17 16:44 Dose: 250 mg Zolpidem Tartrate (Ambien) 5 mg PO PRN PRN PRN Reason: Insomnia Stop: 11/14/17 23:05 Last Admin: 09/23/17 00:20 Dose: 5 mg Cardiovascular: Regular rate Lungs: Clear to auscultation Assessment/Plan - Problem List Patient Problems: All Active Problems INCREASED AGITATION/AGGRESION (Acute) - Assessment Assessment: HTN Non compliance Mental health disorder - Plan Plan: Monitor BP Continue current BP meds Medication compliance Nutritional Asmnt/Malnutr-PDOC - Dietary Evaluation Malnutrition Findings (Please click <Entered> for more info): Nutritional Asmnt/Malnutrition Start: 09/19/17 14: 43 Text: Status: Complete Freq: Protocol: Document 09/19/17 14:43 MERVAT (Rec: 09/19/17 14:48 MERVAT [email or web address]) Nutritional Asmnt/Malnutrition Patient General Information Nutritional Screening Moderate Risk Diagnosis psychosis NOS Pertinent Medical Hx/Surgical Hx HTN, mental health disorders Subjective Information Pt seen in [facility] in [facility]. Per EMR, PO intake 100% of meals. Current Diet Order/ Nutrition Support CCHO JERI Pertinent Medications colace, lasix, slow-mag, theragran, seroquel, Pertinent Labs 09/15 Na 133, Cr 0.5, glucose 83, A1c 5.2 Nutritional Hx/Data Height 1.68 m Height (Calculated Centimeters) 167.6 Current Weight (lbs) 99.79 kg Weight (Calculated Kilograms) 99.8 Weight (Calculated Grams) 04476.3 [place] Body Weight 130 Body Mass Index (BMI) 35.5 Weight Status Obese GI Symptoms GI Symptoms None Last BM none Difficult in: None Skin Integrity/Comment: ed score 16 Current %PO Good (75-100%) Estimated Nutritional Goals BEE in Kcals: Adj wt of IBW Calories/Kcals/Kg 25-30 Kcals Calculated [id number] Protein: Adj wt of IBW Protein g/k Protein Calculated 69 Fluid: ml 1725-2070ml (1ml/kcal) Nutritional Problem No current Nutrition Prob Problem N/A Malnutrition Alert Is there a minimum of two criteria No selected? Query Text:Check all the applicable criteria. A minimum of two criteria are recommended for diagnosis of either severe or non-severe malnutrition. Malnutrition Related to Morbid Obesity Malnutrition related to morbid obesity No Intervention/Recommendation Comments 1. Continue with [facility] diet as ordered. 2. Monitor PO intake, wt, labs and skin integrity 3. F/U as low risk in 7 days, 09/26 Expected Outcomes/Goals Expected Outcomes/Goals 1. PO intake to meet at least 75% of nutritional needs. 2. Wt stability, skin to remain intact, labs to approach WNL.
[2017-09-24] MEDS: Multivitamin Tab PO SCH (09:38)
[2017-09-24] MEDS: risperiDONE 4 mg Tab PO SCH ×2 (09:38→16:45)
[2017-09-24] MEDS: Magnesium Chloride EC 64mg Tab PO SCH (09:38)
--- NOTE | 2017-09-24 23:50 | Progress Notes ---
DATE: 09/24/2017 Case was discussed with staff of the patient, reviewed records. She is well known. History obtained before many times. Covering for Dr. Darden. The patient is considered to be irritable, agitated, banging on the doors, intrusive, yelling and screaming at times. Sometimes, she is on emergency medication. In general, she is a bit calmer. She can express herself very well. She tends to get confused. She has been compliant with the medication with no side effects. Seroquel was increased to 200 mg twice a day and 400 mg at bedtime, Risperdal 2 mg twice a day and the plan was to increase to 1.5 mg twice a day. I will continue outpatient group therapy, milieu therapy, adjust medication as needed. JOB# [id number]
[2017-09-25] MEDS: Multivitamin Tab PO SCH (08:24)
[2017-09-25] MEDS: risperiDONE 4 mg Tab PO SCH ×2 (08:24→16:25)
[2017-09-25] MEDS: Magnesium Chloride EC 64mg Tab PO SCH ×2 (08:24→08:37)
--- NOTE | 2017-09-25 13:07 | General Progress Note ---
Subjective - Review of Systems Service Date: 09/25/17 Subjective: patient doing ok noted to have elevated BP Objective - Results Result Diagrams: 09/15/17 19:05 09/15/17 19:05 Recent Labs: Laboratory Last Values WBC 6.8 Th/cmm (4.8-10.8) 09/15/17 19:05 RBC 4.30 Mil/cmm (3.80-5.10) 09/15/17 19:05 Hgb 13.0 gm/dL (12-16) 09/15/17 19:05 Hct 39.0 % (41.0-60) L 09/15/17 19:05 MCV 90.6 fl (81-100) 09/15/17 19:05 MCH 30.3 pg (27.0-31.0) 09/15/17 19:05 MCHC Differential 33.4 pg (28.0-36.0) 09/15/17 19:05 RDW 13.0 % (11.5-20.0) 09/15/17 19:05 Plt Count 179 Th/cmm (150-400) 09/15/17 19:05 MPV 8.1 fl 09/15/17 19:05 Neutrophils % 62.9 % (40.0-80.0) 09/15/17 19:05 Lymphocytes % 24.6 % (20.0-50.0) 09/15/17 19:05 Monocytes % 10.2 % (2.0-10.0) H 09/15/17 19:05 Eosinophils % 2.3 % (0.0-5.0) 09/15/17 19:05 Basophils % 0.0 % (0.0-2.0) 09/15/17 19:05 Sodium 133 mEq/L (136-145) L 09/15/17 19:05 Potassium 4.0 mEq/L (3.5-5.1) 09/15/17 19:05 Chloride 99 mEq/L (98-107) 09/15/17 19:05 Carbon Dioxide 26.2 mEq/L (21.0-31.0) 09/15/17 19:05 Anion Gap 11.8 (7.0-16.0) 09/15/17 19:05 BUN 12 mg/dL (7-25) 09/15/17 19:05 Creatinine 0.5 mg/dL (0.6-1.2) L 09/15/17 19:05 Est GFR ( Amer) > 60.0 ml/min (>90) 09/15/17 19:05 Est GFR (Non-Af Amer) > 60.0 ml/min 09/15/17 19:05 BUN/Creatinine Ratio 24.0 09/15/17 19:05 Glucose 83 mg/dL (70-105) 09/15/17 19:05 Hemoglobin A1c % 5.2 % (4.0-6.0) 09/15/17 19:05 Calcium 9.8 mg/dL (8.6-10.3) 09/15/17 19:05 Total Bilirubin 0.5 mg/dL (0.3-1.0) 09/15/17 19:05 AST 27 U/L (13-39) 09/15/17 19:05 ALT 36 U/L (7-52) 09/15/17 19:05 Alkaline Phosphatase 74 U/L (34-104) 09/15/17 19:05 Troponin I < 0.01 ng/mL (0.01-0.05) L 09/15/17 19:05 Total Protein 6.3 gm/dL (6.0-8.3) 09/15/17 19:05 Albumin 3.8 gm/dL (3.7-5.3) 09/15/17 19:05 Globulin 2.5 gm/dL 09/15/17 19:05 Albumin/Globulin Ratio 1.5 (1.0-1.8) 09/15/17 19:05 Triglycerides 61 mg/dL (<150) 09/15/17 19:05 Cholesterol 120 mg/dL (<200) 09/15/17 19:05 LDL Cholesterol Direct 48 mg/dL (75-193) L 09/15/17 19:05 HDL Cholesterol 53 mg/dL (23-92) 09/15/17 19:05 TSH 1.19 uIU/ml (0.34-5.60) 09/15/17 19:05 Urine Source CLEAN C 09/15/17 19:43 Urine Color YELLOW 09/15/17 19:43 Urine Clarity CLEAR (CLEAR) 09/15/17 19:43 Urine pH 5.5 (4.6 - 8.0) 09/15/17 19:43 Ur Specific [place] <= 1.005 (1.005-1.030) 09/15/17 19:43 Urine Protein NEGATIVE mg/dL (NEGATIVE) 09/15/17 19:43 Urine Glucose (UA) NEGATIVE mg/dL (NEGATIVE) 09/15/17 19:43 Urine Ketones NEGATIVE mg/dL (NEGATIVE) 09/15/17 19:43 Urine Blood NEGATIVE (NEGATIVE) 09/15/17 19:43 Urine Nitrate NEGATIVE (NEGATIVE) 09/15/17 19:43 Urine Bilirubin NEGATIVE (NEGATIVE) 09/15/17 19:43 Urine Urobilinogen 0.2 E.U./dL (0.2 - 1.0) 09/15/17 19:43 Ur Leukocyte Esterase NEGATIVE (NEGATIVE) 09/15/17 19:43 Urine RBC NONE SEEN /hpf (0-5) 09/15/17 19:43 Urine WBC NONE SEEN /hpf (0-5) 09/15/17 19:43 Ur Epithelial Cells NONE SEEN /lpf (FEW) 09/15/17 19:43 Urine Bacteria NONE SEEN /hpf (NONE SEEN) 09/15/17 19:43 Salicylates < 25.0 mg/L (30.0-100.0) L 09/15/17 19:05 Urine Opiates Screen NEGATIVE (NEGATIVE) 09/15/17 19:43 Urine Methadone Screen NEGATIVE (NEGATIVE) 09/15/17 19:43 Acetaminophen < 10.0 ug/mL (10.0-30.0) L 09/15/17 19:05 Ur Barbiturates Screen NEGATIVE (NEGATIVE) 09/15/17 19:43 Ur Tricyclics Screen POSITIVE (NEGATIVE) H 09/15/17 19:43 Ur Phencyclidine Scrn NEGATIVE (NEGATIVE) 09/15/17 19:43 Amphetamines Screen NEGATIVE (NEGATIVE) 09/15/17 19:43 U Methamphetamines Scrn NEGATIVE (NEGATIVE) 09/15/17 19:43 U Benzodiazepines Scrn NEGATIVE (NEGATIVE) 09/15/17 19:43 U Cocaine Metab Screen NEGATIVE (NEGATIVE) 09/15/17 19:43 U Cannabinoids Screen NEGATIVE (NEGATIVE) 09/15/17 19:43 Ethyl Alcohol < 10 mg/dL (0-10) 09/15/17 19:05 RPR NONREACTIVE (NONREACTIVE) 09/15/17 19:05 - Physical Exam Vitals and I&O: Vital Signs Temp 97.6 F 09/25/17 08:00 Pulse 78 09/25/17 08:25 Resp 18 09/25/17 08:00 BP 150/79 09/25/17 08:25 Pulse Ox 98 09/25/17 08:00 Intake & Output 09/24/17 09/25/17 09/25/17 18:59 06:59 18:59 Intake Total 2830 Balance 2830 Intake: Oral 2830 Other: # Voids 2 # Bowel Movements 0 Active Medications: Current Medications Acetaminophen (Tylenol) 650 mg PO Q4HR PRN PRN Reason: Mild Pain / Temp above 101 Stop: 11/14/17 23:05 Al Hydrox/Mg Hydrox/Simethicone (Maalox) 30 ml PO Q4HR PRN PRN Reason: GI DISTRESS Stop: 11/14/17 23:11 Bisacodyl (Dulcolax 10 Mg Supp) 10 mg RC DAILY PRN PRN Reason: IF MOM INEFFECTIVE Stop: 11/14/17 23:05 Carvedilol (Coreg) 6.25 mg PO BID [facility] Stop: 11/15/17 08:59 Last Admin: 09/25/17 08:25 Dose: 6.25 mg Clonazepam (Klonopin) 1.5 mg PO BID [facility]; Protocol Stop: 11/21/17 08:59 Last Admin: 09/25/17 08:23 Dose: 1.5 mg Diphenhydramine HCl (Benadryl) 50 mg PO HS [facility] Stop: 11/15/17 20:59 Last Admin: 09/24/17 21:31 Dose: 50 mg Docusate Sodium (Colace) 100 mg PO DAILY [facility] Stop: 11/15/17 08:59 Last Admin: 09/25/17 08:24 Dose: 100 mg Furosemide (Lasix) 40 mg PO DAILY [facility] Stop: 11/15/17 08:59 Last Admin: 09/25/17 08:23 Dose: 40 mg Hydroxyzine Pamoate (Vistaril) 25 mg PO Q4HR [facility]; Protocol Stop: 11/15/17 00:00 Last Admin: 09/25/17 12:31 Dose: Not Given Magnesium Chloride (Slow-Mag) 1 ect PO DAILY [facility] Stop: 11/15/17 08:59 Last Admin: 09/25/17 08:24 Dose: 1 ect Magnesium Hydroxide (Milk Of Magnesia) 30 ml PO HS PRN PRN Reason: Constipation Stop: 11/14/17 23:05 Multivitamins/Vitamin C (Theragran) 1 tab PO DAILY [facility] Stop: 11/15/17 08:59 Last Admin: 09/25/17 08:24 Dose: 1 tab Quetiapine Fumarate (Seroquel) 200 mg PO BID [facility]; Protocol Stop: 11/15/17 08:59 Last Admin: 09/25/17 08:24 Dose: 200 mg Quetiapine Fumarate (Seroquel) 400 mg PO HS [facility]; Protocol Stop: 11/15/17 20:59 Last Admin: 09/24/17 22:14 Dose: Not Given Risperidone (Risperdal) 2 mg PO BID [facility]; Protocol Stop: 11/15/17 08:59 Last Admin: 09/25/17 08:24 Dose: 2 mg Valproate Sodium (Depakene) 250 mg PO BID [facility] Stop: 11/15/17 08:59 Last Admin: 09/25/17 08:24 Dose: 250 mg Zolpidem Tartrate (Ambien) 5 mg PO PRN PRN PRN Reason: Insomnia Stop: 11/14/17 23:05 Last Admin: 09/24/17 21:31 Dose: 5 mg Cardiovascular: Regular rate Lungs: Clear to auscultation Assessment/Plan - Problem List Patient Problems: All Active Problems INCREASED AGITATION/AGGRESION (Acute) - Assessment Assessment: HTN Non compliance Mental health disorder - Plan Plan: Monitor BP Lisinopril added Continue current BP meds Medication compliance Nutritional Asmnt/Malnutr-PDOC - Dietary Evaluation Malnutrition Findings (Please click <Entered> for more info): Nutritional Asmnt/Malnutrition Start: 09/19/17 14: 43 Text: Status: Complete Freq: Protocol: Document 09/19/17 14:43 MERVAT (Rec: 09/19/17 14:48 MERVAT [email or web address]) Nutritional Asmnt/Malnutrition Patient General Information Nutritional Screening Moderate Risk Diagnosis psychosis NOS Pertinent Medical Hx/Surgical Hx HTN, mental health disorders Subjective Information Pt seen in [place]ren[place]-chair in hallway, confused. Per EMR, PO intake 100% of meals. Current Diet Order/ Nutrition Support [facility] Pertinent Medications colace, lasix, slow-mag, theragran, seroquel, Pertinent Labs 09/15 Na 133, Cr 0.5, glucose 83, A1c 5.2 Nutritional Hx/Data Height 1.68 m Height (Calculated Centimeters) 167.6 Current Weight (lbs) 99.79 kg Weight (Calculated Kilograms) 99.8 Weight (Calculated Grams) 19726.3 [place] Body Weight 130 Body Mass Index (BMI) 35.5 Weight Status Obese GI Symptoms GI Symptoms None Last BM none Difficult in: None Skin Integrity/Comment: ed score 16 Current %PO Good (75-100%) Estimated Nutritional Goals BEE in Kcals: Adj wt of IBW Calories/Kcals/Kg 25-30 Kcals Calculated 9345-5758 Protein: Adj wt of IBW Protein g/k Protein Calculated 69 Fluid: ml 1725-2070ml (1ml/kcal) Nutritional Problem No current Nutrition Prob Problem N/A Malnutrition Alert Is there a minimum of two criteria No selected? Query Text:Check all the applicable criteria. A minimum of two criteria are recommended for diagnosis of either severe or non-severe malnutrition. Malnutrition Related to Morbid Obesity Malnutrition related to morbid obesity No Intervention/Recommendation Comments 1. Continue with [facility] diet as ordered. 2. Monitor PO intake, wt, labs and skin integrity 3. F/U as low risk in 7 days, 09/26 Expected Outcomes/Goals Expected Outcomes/Goals 1. PO intake to meet at least 75% of nutritional needs. 2. Wt stability, skin to remain intact, labs to approach WNL.
--- NOTE | 2017-09-25 18:22 | Progress Notes ---
DATE: SUBJECTIVE: Chart reviewed and the patient interviewed. Also discussed the patient's condition with the staff and reviewed records and labs. The patient is still forgetful and suspicious and seems to be paranoid. The patient also still has unpredictable behavior. She also had difficulty sleeping at night and she also refused to take Seroquel last night. The patient also needs lots of redirections. Otherwise, the patient is trying to cooperate with the staff, but still needs lots of redirections. ASSESSMENT: The patient is still psychotic. TREATMENT PLAN: Continue to monitor her behavior and her condition closely. Also, continue to work on her irritability and her agitation. JOB# [id number]
--- NOTE | 2017-09-25 21:31 | Progress Notes ---
DATE: 09/25/2017 Case was discussed with staff of the patient, reviewed records. The patient continues to be easily agitated, confused, unable to make safe plan for self-care or participate in meaningful conversation. Continues to have poor insight, unpredictable, impulsive, needing redirection. No side effects with the medication, no sedation, no nausea, no extrapyramidal symptoms. Work with outpatient group therapy, milieu therapy, and adjust medications as needed. JOB# [id number]
[2017-09-26] MEDS: risperiDONE 4 mg Tab PO SCH ×2 (09:20→17:32)
[2017-09-26] MEDS: Multivitamin Tab PO SCH (09:21)
[2017-09-26] MEDS: Magnesium Chloride EC 64mg Tab PO SCH (09:21)
[2017-09-27] MEDS: risperiDONE 4 mg Tab PO SCH (11:25)
[2017-09-27] MEDS: Multivitamin Tab PO SCH (11:25)
[2017-09-27] MEDS: Magnesium Chloride EC 64mg Tab PO SCH (11:25)
--- NOTE | 2017-09-27 23:34 | Progress Notes ---
DATE: 09/27/2017 PSYCHIATRIC PROGRESS NOTE SUBJECTIVE: Chart reviewed and the patient interviewed. Also discussed the patient's condition with the staff and reviewed the records and labs. The patient remains in angry and in irritable mood. The patient also is suspicious and paranoid. The patient also is interacting minimally with others and when she does, she is angry and restless. She still needs close monitoring and she still has poor impulse control. Discussed with nursing staff, discharge plans and the patient still has no place to go and still working on her discharge and placement issues. We will continue monitoring her behavior and her medications and continue to work on discharge plans and placement issue. JOB# [id number]
[2017-09-28] MEDS: Magnesium Chloride EC 64mg Tab PO SCH (09:31)
[2017-09-28] MEDS: risperiDONE 4 mg Tab PO SCH ×2 (09:31→16:32)
[2017-09-28] MEDS: Multivitamin Tab PO SCH (09:33)
[2017-09-29] MEDS: Multivitamin Tab PO SCH (08:42)
[2017-09-29] MEDS: Magnesium Chloride EC 64mg Tab PO SCH (08:46)
[2017-09-29] MEDS ORDERED: chlorproMAZINE 25 mg/mL 2mL Amp ONE (13:17)
[2017-09-29] MEDS ORDERED: chlorproMAZINE 25 mg/mL 2mL Amp IM STA (13:19)
--- NOTE | 2017-09-29 15:18 | General Progress Note ---
Subjective - Review of Systems Service Date: 09/29/17 Subjective: patient doing ok noted to have elevated BP Objective - Results Result Diagrams: 09/15/17 19:05 09/15/17 19:05 Recent Labs: Laboratory Last Values WBC 6.8 Th/cmm (4.8-10.8) 09/15/17 19:05 RBC 4.30 Mil/cmm (3.80-5.10) 09/15/17 19:05 Hgb 13.0 gm/dL (12-16) 09/15/17 19:05 Hct 39.0 % (41.0-60) L 09/15/17 19:05 MCV 90.6 fl (81-100) 09/15/17 19:05 MCH 30.3 pg (27.0-31.0) 09/15/17 19:05 MCHC Differential 33.4 pg (28.0-36.0) 09/15/17 19:05 RDW 13.0 % (11.5-20.0) 09/15/17 19:05 Plt Count 179 Th/cmm (150-400) 09/15/17 19:05 MPV 8.1 fl 09/15/17 19:05 Neutrophils % 62.9 % (40.0-80.0) 09/15/17 19:05 Lymphocytes % 24.6 % (20.0-50.0) 09/15/17 19:05 Monocytes % 10.2 % (2.0-10.0) H 09/15/17 19:05 Eosinophils % 2.3 % (0.0-5.0) 09/15/17 19:05 Basophils % 0.0 % (0.0-2.0) 09/15/17 19:05 Sodium 133 mEq/L (136-145) L 09/15/17 19:05 Potassium 4.0 mEq/L (3.5-5.1) 09/15/17 19:05 Chloride 99 mEq/L (98-107) 09/15/17 19:05 Carbon Dioxide 26.2 mEq/L (21.0-31.0) 09/15/17 19:05 Anion Gap 11.8 (7.0-16.0) 09/15/17 19:05 BUN 12 mg/dL (7-25) 09/15/17 19:05 Creatinine 0.5 mg/dL (0.6-1.2) L 09/15/17 19:05 Est GFR ( Amer) > 60.0 ml/min (>90) 09/15/17 19:05 Est GFR (Non-Af Amer) > 60.0 ml/min 09/15/17 19:05 BUN/Creatinine Ratio 24.0 09/15/17 19:05 Glucose 83 mg/dL (70-105) 09/15/17 19:05 Hemoglobin A1c % 5.2 % (4.0-6.0) 09/15/17 19:05 Calcium 9.8 mg/dL (8.6-10.3) 09/15/17 19:05 Total Bilirubin 0.5 mg/dL (0.3-1.0) 09/15/17 19:05 AST 27 U/L (13-39) 09/15/17 19:05 ALT 36 U/L (7-52) 09/15/17 19:05 Alkaline Phosphatase 74 U/L (34-104) 09/15/17 19:05 Troponin I < 0.01 ng/mL (0.01-0.05) L 09/15/17 19:05 Total Protein 6.3 gm/dL (6.0-8.3) 09/15/17 19:05 Albumin 3.8 gm/dL (3.7-5.3) 09/15/17 19:05 Globulin 2.5 gm/dL 09/15/17 19:05 Albumin/Globulin Ratio 1.5 (1.0-1.8) 09/15/17 19:05 Triglycerides 61 mg/dL (<150) 09/15/17 19:05 Cholesterol 120 mg/dL (<200) 09/15/17 19:05 LDL Cholesterol Direct 48 mg/dL (75-193) L 09/15/17 19:05 HDL Cholesterol 53 mg/dL (23-92) 09/15/17 19:05 TSH 1.19 uIU/ml (0.34-5.60) 09/15/17 19:05 Urine Source CLEAN C 09/15/17 19:43 Urine Color YELLOW 09/15/17 19:43 Urine Clarity CLEAR (CLEAR) 09/15/17 19:43 Urine pH 5.5 (4.6 - 8.0) 09/15/17 19:43 Ur Specific [place] <= 1.005 (1.005-1.030) 09/15/17 19:43 Urine Protein NEGATIVE mg/dL (NEGATIVE) 09/15/17 19:43 Urine Glucose (UA) NEGATIVE mg/dL (NEGATIVE) 09/15/17 19:43 Urine Ketones NEGATIVE mg/dL (NEGATIVE) 09/15/17 19:43 Urine Blood NEGATIVE (NEGATIVE) 09/15/17 19:43 Urine Nitrate NEGATIVE (NEGATIVE) 09/15/17 19:43 Urine Bilirubin NEGATIVE (NEGATIVE) 09/15/17 19:43 Urine Urobilinogen 0.2 E.U./dL (0.2 - 1.0) 09/15/17 19:43 Ur Leukocyte Esterase NEGATIVE (NEGATIVE) 09/15/17 19:43 Urine RBC NONE SEEN /hpf (0-5) 09/15/17 19:43 Urine WBC NONE SEEN /hpf (0-5) 09/15/17 19:43 Ur Epithelial Cells NONE SEEN /lpf (FEW) 09/15/17 19:43 Urine Bacteria NONE SEEN /hpf (NONE SEEN) 09/15/17 19:43 Salicylates < 25.0 mg/L (30.0-100.0) L 09/15/17 19:05 Urine Opiates Screen NEGATIVE (NEGATIVE) 09/15/17 19:43 Urine Methadone Screen NEGATIVE (NEGATIVE) 09/15/17 19:43 Acetaminophen < 10.0 ug/mL (10.0-30.0) L 09/15/17 19:05 Ur Barbiturates Screen NEGATIVE (NEGATIVE) 09/15/17 19:43 Ur Tricyclics Screen POSITIVE (NEGATIVE) H 09/15/17 19:43 Ur Phencyclidine Scrn NEGATIVE (NEGATIVE) 09/15/17 19:43 Amphetamines Screen NEGATIVE (NEGATIVE) 09/15/17 19:43 U Methamphetamines Scrn NEGATIVE (NEGATIVE) 09/15/17 19:43 U Benzodiazepines Scrn NEGATIVE (NEGATIVE) 09/15/17 19:43 U Cocaine Metab Screen NEGATIVE (NEGATIVE) 09/15/17 19:43 U Cannabinoids Screen NEGATIVE (NEGATIVE) 09/15/17 19:43 Ethyl Alcohol < 10 mg/dL (0-10) 09/15/17 19:05 RPR NONREACTIVE (NONREACTIVE) 09/15/17 19:05 - Physical Exam Vitals and I&O: Vital Signs Temp 98.2 F 09/29/17 14:00 Pulse 80 09/29/17 14:00 Resp 18 09/29/17 14:00 BP 153/90 09/29/17 14:00 Pulse Ox 95 09/29/17 14:00 Intake & Output 09/28/17 09/29/17 09/29/17 18:59 06:59 18:59 Intake Total 1500 120 Balance 1500 120 Intake: Oral 1500 120 Other: # Voids 3 2 # Bowel Movements 0 Active Medications: Current Medications Acetaminophen (Tylenol) 650 mg PO Q4HR PRN PRN Reason: Mild Pain / Temp above 101 Stop: 11/14/17 23:05 Last Admin: 09/28/17 03:38 Dose: 650 mg Al Hydrox/Mg Hydrox/Simethicone (Maalox) 30 ml PO Q4HR PRN PRN Reason: GI DISTRESS Stop: 11/14/17 23:11 Bisacodyl (Dulcolax 10 Mg Supp) 10 mg RC DAILY PRN PRN Reason: IF MOM INEFFECTIVE Stop: 11/14/17 23:05 Carvedilol (Coreg) 6.25 mg PO BID [facility] Stop: 11/15/17 08:59 Last Admin: 09/29/17 09:54 Dose: 6.25 mg Clonazepam (Klonopin) 1.5 mg PO BID [facility]; Protocol Stop: 11/21/17 08:59 Last Admin: 09/29/17 10:12 Dose: 1.5 mg Diphenhydramine HCl (Benadryl) 50 mg PO HS [facility] Stop: 11/15/17 20:59 Last Admin: 09/28/17 22:21 Dose: Not Given Docusate Sodium (Colace) 100 mg PO DAILY [facility] Stop: 11/15/17 08:59 Last Admin: 09/29/17 08:47 Dose: 100 mg Furosemide (Lasix) 40 mg PO DAILY [facility] Stop: 11/15/17 08:59 Last Admin: 09/29/17 09:20 Dose: 40 mg Hydroxyzine Pamoate (Vistaril) 25 mg PO Q4HR [facility]; Protocol Stop: 11/15/17 00:00 Last Admin: 09/29/17 13:54 Dose: 25 mg Lisinopril (Zestril) 10 mg PO DAILY [facility] Stop: 11/25/17 08:59 Last Admin: 09/29/17 09:21 Dose: 10 mg Magnesium Chloride (Slow-Mag) 1 ect PO DAILY [facility] Stop: 11/15/17 08:59 Last Admin: 09/29/17 08:46 Dose: 1 ect Magnesium Hydroxide (Milk Of Magnesia) 30 ml PO HS PRN PRN Reason: Constipation Stop: 11/14/17 23:05 Multivitamins/Vitamin C (Theragran) 1 tab PO DAILY [facility] Stop: 11/15/17 08:59 Last Admin: 09/29/17 08:42 Dose: 1 tab Quetiapine Fumarate (Seroquel) 200 mg PO BID [facility]; Protocol Stop: 11/15/17 08:59 Last Admin: 09/29/17 09:27 Dose: 200 mg Quetiapine Fumarate (Seroquel) 400 mg PO HS [facility]; Protocol Stop: 11/15/17 20:59 Last Admin: 09/28/17 22:21 Dose: Not Given Risperidone (Risperdal) 1 mg PO BID [facility]; Protocol Stop: 11/28/17 08:14 Last Admin: 09/29/17 09:27 Dose: 1 mg Valproate Sodium (Depakene) 250 mg PO BID [facility] Stop: 11/15/17 08:59 Last Admin: 09/29/17 09:27 Dose: 250 mg Zolpidem Tartrate (Ambien) 5 mg PO PRN PRN PRN Reason: Insomnia Stop: 11/14/17 23:05 Last Admin: 09/27/17 01:41 Dose: 5 mg Cardiovascular: Regular rate Lungs: Clear to auscultation Assessment/Plan - Problem List Patient Problems: All Active Problems INCREASED AGITATION/AGGRESION (Acute) - Assessment Assessment: HTN Non compliance Mental health disorder - Plan Plan: Monitor BP Lisinopril psych management per psych Medication compliance Nutritional Asmnt/Malnutr-PDOC - Dietary Evaluation Malnutrition Findings (Please click <Entered> for more info): Nutritional Asmnt/Malnutrition Start: 09/19/17 14: 43 Text: Status: Complete Freq: Protocol: Document 09/19/17 14:43 MERVAT (Rec: 09/19/17 14:48 MERVAT [email or web address]) Nutritional Asmnt/Malnutrition Patient General Information Nutritional Screening Moderate Risk Diagnosis psychosis NOS Pertinent Medical Hx/Surgical Hx HTN, mental health disorders Subjective Information [facility] Per EMR, PO intake 100% of meals. Current Diet Order/ Nutrition Support [facility] Pertinent Medications colace, lasix, slow-mag, theragran, seroquel, Pertinent Labs 09/15 Na 133, Cr 0.5, glucose 83, A1c 5.2 Nutritional Hx/Data Height 1.68 m Height (Calculated Centimeters) 167.6 Current Weight (lbs) 99.79 kg Weight (Calculated Kilograms) 99.8 Weight (Calculated Grams) 96358.3 [place] Body Weight 130 Body Mass Index (BMI) 35.5 Weight Status Obese GI Symptoms GI Symptoms None Last BM none Difficult in: None Skin Integrity/Comment: ed score 16 Current %PO Good (75-100%) Estimated Nutritional Goals BEE in Kcals: Adj wt of IBW Calories/Kcals/Kg 25-30 Kcals Calculated 9748-0462 Protein: Adj wt of IBW Protein g/k Protein Calculated 69 Fluid: ml 1725-2070ml (1ml/kcal) Nutritional Problem No current Nutrition Prob Problem N/A Malnutrition Alert Is there a minimum of two criteria No selected? Query Text:Check all the applicable criteria. A minimum of two criteria are recommended for diagnosis of either severe or non-severe malnutrition. Malnutrition Related to Morbid Obesity Malnutrition related to morbid obesity No Intervention/Recommendation Comments 1. Continue with [facility] diet as ordered. 2. Monitor PO intake, wt, labs and skin integrity 3. F/U as low risk in 7 days, 09/26 Expected Outcomes/Goals Expected Outcomes/Goals 1. PO intake to meet at least 75% of nutritional needs. 2. Wt stability, skin to remain intact, labs to approach WNL.
[2017-09-30] MEDS: Multivitamin Tab PO SCH (08:25)
[2017-09-30] MEDS: Magnesium Chloride EC 64mg Tab PO SCH (08:25)
--- NOTE | 2017-10-01 00:01 | Discharge Summary ---
DATE OF DISCHARGE: 09/30/2017 PATIENT'S AGE: 56. SEX: Female. PHYSICIAN: Pradeep Darden MD, MPH FINAL DIAGNOSES: PRIMARY DIAGNOSES: Schizoaffective disorder, bipolar type, severe, with psychotic features. REASON FOR HOSPITALIZATION: The patient was admitted to the hospital because of increased irritability and increased agitation. The patient was originally coming from [facility]. She was aggressive and she was not able to follow any of staff directions and she was admitted to the hospital. HOSPITAL COURSE: The patient continued to be increasingly irritable and increasingly agitated. She also was in depressed mood and at other times she was hyperverbal. The patient was given Klonopin and the dose increased to 1.5 mg twice a day. She also was given Seroquel in a dose of 200 mg twice a day and 400 mg at the time and Seroquel was added and the dose adjusted to 2 mg twice a day and also she was given Depakote 250 mg twice a day. Gradually, the patient's affect was brighter. Placement was an issue. Finally, [facility] patient and the patient was transferred there. Physical exam of the patient showed that the patient has hypertension. Dr. Hoff will observe the patient closely. AFTER DISCHARGE PLANS: The patient discharged from the hospital, went to the . Plan to follow up there. EXPECTED OUTCOME AFTER DISCHARGE: Fair if the patient continues with her outpatient treatment plans and to take her psychotropic medications. [facility]# [id number]
--- NOTE | 2017-10-01 09:55 | Progress Notes ---
DATE: 09/28/2017 DATE: 09/28/2017 SUBJECTIVE: Chart reviewed and the patient interviewed. Also discussed the patient's condition with the staff and reviewed records and labs. The patient is still confused and is still easily agitated and in irritable mood. The patient also is still suspicious and is still angry at times. She also still needs lots of redirections. She also is still restless. Otherwise, the patient is more compliant with taking her medications with no side effects of medications. ASSESSMENT: The patient is still agitated and psychotic. TREATMENT PLAN: Continue to monitor her behavior and her condition closely. Also, continue adjusting psychotropic medications and working on discharge plans. JOB# [id number]
--- NOTE | 2017-10-01 19:00 | Progress Notes ---
DATE: 09/29/2017 SUBJECTIVE: Chart reviewed and the patient interviewed. Also discussed the patient's condition with the staff and reviewed records and labs. The patient is still easily agitated and in irritable mood. The patient also is still unpredictable and still has severe mood swings and anger. The patient also is guarded. She has continued to take Klonopin in 1.5 mg twice a day and Seroquel 200 mg twice a day and 400 mg at bedtime. She is also taking Risperdal 1 mg twice a day. She still needs lots of redirections. She also still has trouble sleeping at night. TREATMENT PLAN: We will continue monitoring her behavior and continue to follow up. [facility]# [id number]
== END 2017-09-30 22:14 | DRG 885 ==
LOC: ER 18:41 → GERO2 20:40
PROVIDERS: ADMIT Psychiatry & Neurology Psychiatry; ATTEND Psychiatry & Neurology Psychiatry
DX: F25.0 Schizoaffective disorder, bipolar type (principal); E87.1 Hypo-osmolality and hyponatremia; F23 Brief psychotic disorder; I10 Essential (primary) hypertension; M19.90 Unspecified osteoarthritis, unspecified site; I25.10 Atherosclerotic heart disease of native coronary artery without angina pectoris; E78.5 Hyperlipidemia, unspecified; Z91.14 Patient's other noncompliance with medication regimen; Z83.3 Family history of diabetes mellitus; Z82.49 Family history of ischemic heart disease and other diseases of the circulatory system; Z88.8 Allergy status to other drugs, medicaments and biological substances
CPT/HCPCS: 36415-UA; 80053-TC; 80061-TC; 80307; 80320-TC; 80329-TC; 81001-TC; 83036-90; 84443-TC; 84484-TC; 85025-TC; 86592-TC; 93005; 97530; 97535; J1200; J1630; J3230; Q0177; X3904; Z7610